=== PATIENT | male | born 1975 | race African-American/Black ===

== ENCOUNTER 2016-12-23 15:11 | Inpatient (IN) | payer MEDICARE, OTHER ==
[~2016-12-23] VITALS: Ht 162.6 cm; Wt 67.6 kg
[~2016-12-23 15:11] MED LIST: DIPH-530 IVP; DIPH1TAB PO; EFAV600T PO
--- NOTE | 2016-12-23 15:24 | NUR ---
PT BB BROTHER FROM HOME FOR WORSENING SOB AND BODY PAIN SINCE YESTERDAY. PT ON O2 @2LPM AT HOME. PLACED ON MONITOR. VSS. AWAITING MD ORDER. PT LAST DIALYZE SUNDAY.
[2016-12-23] MEDS ORDERED: HYDROMORPHONE 1 MG/1 ML DISP.SYRIN ONE (15:50)
[2016-12-23] MEDS ORDERED: ONDANSETRON HCL/PF 4 MG/2 ML VIAL ONE (15:50)
[2016-12-23] MEDS ORDERED: HYDROMORPHONE 1 MG/1 ML DISP.SYRIN IV ONE (16:00)
[2016-12-23] MEDS ORDERED: ONDANSETRON HCL/PF 4 MG/2 ML VIAL IV ONE (16:00)
--- NOTE | 2016-12-23 16:00 | NUR ---
LAC #20 IV ACCESS BLOOD SAMPLE COLLECTED SENT TO LAB
--- NOTE | 2016-12-23 16:07 | NUR ---
KAIT AT BS.
[2016-12-23] MEDS ORDERED: IOHEXOL-300 100 ML VIAL IV ONE (16:17)
[2016-12-23] MEDS ORDERED: IV NS 0.9% 250 ML IV ONE (16:17)
[2016-12-23] MEDS ORDERED: CT SWABBABLE VALVE TRANS SET 1 EA INFUS.SET MC ONE (16:17)
[2016-12-23 16:19] LABS: BASOPHILS % (AUTO) 0.3 % (0.0-2.0); EOSINOPHILS % (AUTO) 0.3 % (0.0-6.0); HEMATOCRIT 36 % (39-51); HEMOGLOBIN 11.3 g/dL (13.5-17.5); LYMPHOCYTES # (AUTO) 0.3 /CMM (0.8-4.8); LYMPHOCYTES % (AUTO) 7.6 % (20.0-44.0); MEAN CORPUSCULAR HEMOGLOBIN 30 PG (26.0-33.0); MEAN CORPUSCULAR HGB CONC 32 g/dl (31.0-36.0); MEAN CORPUSCULAR VOLUME 94 fL (80-96); MONOCYTES # (AUTO) 0.2 /CMM (0.1-1.30); NEUTROPHILS # (AUTO) 2.9 /CMM (1.8-8.9); NEUTROPHILS % (AUTO) 85.8 % (43.0-81.0); PLATELET COUNT (AUTO) 79 /CMM (150-450); RDW COEFFICIENT OF VARIATION 15.4 (11.5-15.0); WHITE BLOOD COUNT (AUTO) 3.4 K/uL (4.3-11.0)
[2016-12-23 16:22] LABS: CARBON DIOXIDE 22 mmol/L (21-32); CHLORIDE 96 mmol/L (98-107); GFR 5 mL/min (>60); GLUCOSE 91 mg/dL (74-106); POTASSIUM 5.5 mmol/L (3.5-5.1); SODIUM SERUM 132 mmol/L (136-145); UREA NITROGEN, BLOOD 51 mg/dL (7-18)
[2016-12-23 16:30] LABS: CREATININE 13.7 mg/dL (0.6-1.3); TROPONIN I < 0.017 ng/mL (0.00-0.056)
[2016-12-23] MEDS ORDERED: diphenhydrAMINE HCL 50 MG/ML VIAL ONE (16:31)
[2016-12-23 16:34] LABS: ALANINE AMINOTRANSFERASE 17 U/L (12-78); ALBUMIN 3.7 g/dL (3.4-5.0); ALKALINE PHOSPHATASE 224 U/L (46-116); ASPARTATE AMINOTRANSFERASE 18 U/L (15-37); B-TYPE NATRIURETIC PEPTIDE 2067 PG/ML (0-125); BILIRUBIN,DIRECT 0.2 mg/dL (0.0-0.2); BILIRUBIN,TOTAL 0.4 mg/dL (0.2-1.0); TOTAL PROTEIN, SERUM 9.1 g/dL (6.4-8.2)
--- NOTE | 2016-12-23 16:40 | NUR ---
PT TAKEN TO CT SCAN VIA WC
[2016-12-23 16:42] LABS: INR 1.02 (0.87-1.13); PROTHROMBIN TIME 10.9 SECS (9.5-12.7)
[2016-12-23 16:55] LABS: MAGNESIUM 2.5 mg/dL (1.8-2.4); PHOSPHORUS 6.7 mg/dL (2.5-4.9)
--- NOTE | 2016-12-23 16:56 | NUR ---
CALLED NURSING SUP. FOR TELE BED, INFORMED HER PT HAS HIV
[2016-12-23] MEDS ORDERED: diphenhydrAMINE HCL 50 MG/ML VIAL IV ONE (17:00)
--- NOTE | 2016-12-23 17:19 | NUR ---
DR.RUTHERFORD CECILIA YARD GENERAL CAR SUPERVISOR
[2016-12-23] MEDS ORDERED: SEVE800T8 PO (17:28)
[2016-12-23] MEDS ORDERED: DIPH25CA6 PO (17:28)
[2016-12-23] MEDS ORDERED: LORA0.5T PO (17:28)
[2016-12-23] MEDS ORDERED: LORAZEPAM 1 MG TABLET ONE (17:29)
--- NOTE | 2016-12-23 17:33 | NUR ---
EPIC REPAGED FOR UPDATE ON PT
[2016-12-23] MEDS ORDERED: MAG HYDROX/AL HYDROX/SIMETH 30 ML UDC PO PRN (18:00)
[2016-12-23] MEDS ORDERED: ONDANSETRON HCL/PF 4 MG/2 ML VIAL IVP PRN (18:00)
[2016-12-23] MEDS ORDERED: SODIUM POLYSTYRENE SULFONATE 15 G/60 ML BOTTLE PO ONE (18:00)
[2016-12-23] MEDS ORDERED: Z GUARD REMEDY 2 OZ OINT TP PRN (18:00)
[2016-12-23] MEDS ORDERED: MAGNESIUM HYDROXIDE 30 ML UDC PO PRN (18:00)
[2016-12-23] MEDS ORDERED: HYDROCODONE/APAP 5/325MG 1 EACH TABLET PO PRN (18:00)
[2016-12-23] MEDS ORDERED: LORAZEPAM 1 MG TABLET PO ONE (18:00)
[2016-12-23] MEDS ORDERED: LORAZEPAM 0.5 MG TABLET PO ONE (18:00)
--- NOTE | 2016-12-23 18:03 | NUR ---
GAVE REPORT TO RENATO MARRJOB PRINTER ROOM 312-2 . TRANSPORTED VIA ACLS PROTOCOL.
[2016-12-23 18:13] LABS: ANISOCYTOSIS 1+; BAND % (MANUAL) 5 % (0.0-5.0); LYMPHOCYTES % (MANUAL) 6 % (16-48); MONOCYTES % (MANUAL) 7 % (0-11.0); NEUTROPHILS % (MANUAL) 82 (42-76); PLATELET ESTIMATE DECREASED
--- NOTE | 2016-12-23 18:20 | NUR ---
RECEIVED PATIENT ON THE FLOOR AT 1820. PATIENT RESTING IN BED, AROUSABLE, ALERT AND ORIENTED X4. GAVE WARM BLANKET, MET NEEDS AND MADE SURE PATIENT IS SAFE. 2 1/2 BILATERAL SIDERAILS UP, ORIENTED TO CALL LIGHT AND TELEVISION. WILL ENDORSE TO NEXT SHIFT TO COMPLETE ADMISSION.
--- NOTE | 2016-12-23 18:48 | NUR ---
MD SCHULER AWARE ABOUT PATIENT'S BUN AND CREATININE LEVELS. PATIENT ON LIST FOR DIALYSIS TOMORROW.
--- NOTE | 2016-12-23 18:57 | NUR ---
WAITING FOR KAYEXALATE AT FROM PHARMACY, WILL ENDORSE TO NEXT SHIFT
--- NOTE | 2016-12-23 19:30 | NUR ---
CARGO AGENT NOTES RECEIVED ON BED MOANING IN PAIN,CLAIMED HES HAVING ABDOMINAL PAIN.WITH RIGHT UPPER ARM AV FISTULA FOR HD ACCESS.LEFT AC SALINE LOCK FOR MEDS.O2 IN USED AT 2L/TO KEEP O2 SAT ABOVE 90%.BED O LOW POSITION AND LOCK,CALL LIGHT IN REACH,NEEDS ANTICIPATED.
[2016-12-23 20:00] VITALS: BP 132/73
[2016-12-23] MEDS: MORPHINE SULFATE INJ 2 MG/ML DISP.SYRIN IV PRN (20:11)
--- NOTE | 2016-12-23 20:11 | NUR ---
CARE TRANSITION MANAGER NOTES PAIN MANAGEMENT C/O ABDOMINAL PAIN 8/10 ON PAIN SCALE.MEDICATED WITH MORPHINE 2MG IVP ORDERED FOR SEVERE PAIN.
[2016-12-23 20:35] VITALS: BP 134/73
--- NOTE | 2016-12-23 21:32 | NUR ---
CHIEF RISK OFFICER NOTES SR 89 ON TELE MONITOR
[2016-12-23] MEDS: diphenhydrAMINE HCL 25 MG CAPSULE PO PRN (22:19)
--- NOTE | 2016-12-23 22:19 | NUR ---
CLOSING SUPERVISOR NOTES C/O GENERALIZED ITCHINESS,MEDICATED WITH BENADRYL 50MG PO ORDERED
[2016-12-24] VITALS (9 sets, daily range): BP systolic 107–130; BP diastolic 66–78
--- NOTE | 2016-12-24 01:00 | NUR ---
BATON TEACHER NOTES AWAKE,C/O PRODUCTIVE COUGH,DR WHALEY PAGE WITH NEW ORDER NOTED AND CARRIED OUT.
[2016-12-24] MEDS ORDERED: GUAIFENESIN/D-METHORPHAN HB 5 ML UDC ONE (01:12)
[2016-12-24] MEDS: GUAIFENESIN/D-METHORPHAN HB 5 ML UDC PO PRN ×5 (01:18→21:00)
[2016-12-24] MEDS: MORPHINE SULFATE INJ 2 MG/ML DISP.SYRIN IV PRN ×5 (01:22→20:30)
--- NOTE | 2016-12-24 01:22 | NUR ---
KNOCKER OFF NOTES GIVEN KHARIITUSSIN DN 10ML PO FOR COUGH WITH ORDER
--- NOTE | 2016-12-24 01:22 | NUR ---
INSEMINATOR NOTES PAIN MANAGEMENT C/O BACK PAIN 9/10 ON PAIN SCALE,MEDICATED WITH MORPHINE 2MG IVP ORDERED.WILL MONITOR FOR RELIEF
[2016-12-24] MEDS ORDERED: GUAIFENESIN/CODEINE 10 ML UDC PO PRN (01:30)
[2016-12-24] MEDS: ZOLPIDEM TARTRATE 5 MG TABLET PO PRN (02:04)
--- NOTE | 2016-12-24 02:04 | NUR ---
WATER SERVICE SUPERVISOR NOTES C/O INSOMNIA,AMBIEN 5MG PO GIVEN PER PATIENT REQUEST
[2016-12-24] MEDS: ACETAMINOPHEN 325 MG TABLET PO PRN (03:30)
--- NOTE | 2016-12-24 03:30 | NUR ---
SUPERVISOR BACKFILLING NOTES C/O HEADACHE,TYLENOL 650 PO ADMINISTERED ORDERED.
[2016-12-24] MEDS: LORAZEPAM 0.5 MG TABLET PO PRN ×3 (04:04→22:11)
--- NOTE | 2016-12-24 04:04 | NUR ---
STREETCAR OPERATOR NOTES FEELING ANXIOUS,ATIVAN 0.5 PO GIVEN PER PATIENT REQUEST.
--- NOTE | 2016-12-24 06:27 | NUR ---
DERMATOLOGY SALES REPRESENTATIVE NOTES SLEPT WITH INTERVALS,MEDICATIONS GIVEN EFFECTIVE.FOR HD TODAY.NO SOB NOTED,AFEBRILE.CALL LIGHT IN REACH,NEEDS ATTENDED.WILL ENDORSE TO DAY NURSE FOR GUSTAVO.
[2016-12-24 06:47] LABS: BASOPHILS % (AUTO) 0.3 % (0.0-2.0); HEMATOCRIT 32 % (39-51); HEMOGLOBIN 10.3 g/dL (13.5-17.5); LYMPHOCYTES # (AUTO) 0.5 /CMM (0.8-4.8); LYMPHOCYTES % (AUTO) 10.3 % (20.0-44.0); MEAN CORPUSCULAR HEMOGLOBIN 30 PG (26.0-33.0); MEAN CORPUSCULAR HGB CONC 32 g/dl (31.0-36.0); MEAN CORPUSCULAR VOLUME 94 fL (80-96); MONOCYTES # (AUTO) 0.4 /CMM (0.1-1.30); MONOCYTES % (AUTO) 8.1 % (2.0-12.0); NEUTROPHILS # (AUTO) 3.6 /CMM (1.8-8.9); NEUTROPHILS % (AUTO) 81.3 % (43.0-81.0); PLATELET COUNT (AUTO) 87 /CMM (150-450); RDW COEFFICIENT OF VARIATION 15.9 (11.5-15.0); RED BLOOD CELL COUNT(AUTO) 3.39 MIL/uL (4.5-6.0); WHITE BLOOD COUNT (AUTO) 4.4 K/uL (4.3-11.0)
[2016-12-24 07:35] LABS: CALCIUM, SERUM 6.6 mg/dL (8.5-10.1); MAGNESIUM 2.4 mg/dL (1.8-2.4); POTASSIUM 5.7 mmol/L (3.5-5.1)
--- NOTE | 2016-12-24 07:37 | NUR ---
RN OPENING NOTES TELE RECEIVED REPORT FROM CAKE PULLER NURSE. PATIENT IS IN BED. BED IN LOW POSITION, LOCKED AND 2 SIDE RAILS ARE UP. NO SIGNS OR SYMPTOMS OF DISTRESS. IV SITE IS INTACT AND POTENT. WILL CONTINUE TO MONITOR AND ASSESS PATIENT THROUGHOUT MY SHIFT.
--- NOTE | 2016-12-24 07:38 | NUR ---
RN NOTES / CRITICAL LAB LAB CALLED WITH CRITICAL VALUE. POTASSIUM IS 5.7 AND Cr IS 14.8 DIALYSIS IS SCHEDULE FOR TODAY AT 0900. WILL FOLLOW UP WITH .
[2016-12-24 07:40] LABS: CREATININE 14.8 mg/dL (0.6-1.3)
[2016-12-24] MEDS: SEVELAMER CARBONATE 800 MG TABLET PO SCH ×3 (08:00→16:42)
[2016-12-24] MEDS: PANTOPRAZOLE 40 MG TABLET.DR PO SCH (08:15)
--- NOTE | 2016-12-24 08:27 | NUR ---
RN NOTES 0900 MEDS PATIENT DIDN'T EAT BREAKFAST AND PATIENT WILL HAVE DIALYSIS TODAY AT 0900. RENAGEL AND SUSTIVA HELD RESPECTIVELY
--- NOTE | 2016-12-24 09:00 | NUR ---
TEJINDER NOTES DIALYSIS PATIENT STARTED DIALYSIS. Addendum: 12/24/16 at 1242 by EMILIO BARBOSA RN PATIENT DONE WITH DIALYSIS. VITAL SIGNS 132/77, HR 70 TEMP 99.1 3500CC REMOVED DURING DIALYSIS
--- NOTE | 2016-12-24 09:00 | NUR ---
RN NOTES RENAGEL RENAGEL 0900 DOSE NOT ADMINISTERED. PATIENT REFUSED MEDS BECAUSE HE DIDN'T WANT TO EAT BREAKFAST. PATIENT IS DOING DIALYSIS AND WILL BE FINISH AROUND 1200. WILL ADMINISTER 1300 DOSE DURING LUNCH TIME.
[2016-12-24] MEDS ORDERED: EPOETIN ALFA (10,000 UNIT) 10,000 UNIT/ML VIAL SQ ONE (10:00)
[2016-12-24] MEDS: diphenhydrAMINE HCL 50 MG/ML VIAL IV PRN ×3 (10:01→23:43)
[2016-12-24 10:09] LABS: BAND % (MANUAL) 8 % (0.0-5.0); LYMPHOCYTES % (MANUAL) 11 % (16-48); MONOCYTES % (MANUAL) 8 % (0-11.0); NEUTROPHILS % (MANUAL) 73 (42-76); PLATELET ESTIMATE DECREASED
[2016-12-24] MEDS: EFAVIRENZ 600 MG TABLET PO SCH (12:32)
--- NOTE | 2016-12-24 18:30 | NUR ---
RN CLOSING NOTES PATIENT IS IN BED, ALERT AND ORIENTED TO NAME, PLACE AND TIME. BED IN LOW POSITION, LOCKED AND TWO SIDE RAILS ARE UP. NO SIGNS OR SYMPTOMS OF DISTRESS. SINUS RHYTHM ON THE MONITOR. PATIENT'S PAIN WAS RELIEVED BY MORPHINE 2MG Q4H, PLEASE REFER TO eMAR FOR MORPHINE ADMINISTRATING TIME. PATIENT DIDN'T HAVE GOOD APPETITE ALL DAY, 0% BREAKFAST, 5% LUNCH AND 25% DINNER. PATIENT SAID: "I DON'T LIKE HOSPITAL FOOD". I ADVISED THE PATIENT TO SPEAK WITH HIS FAMILY / FRIENDS TO BRING HIM FOOD. I ALSO GAVE HIM PUDDING AND APPLE SAUCE. DR SCHULER WAS AWARE OF PATIENT LABS ABNORMALITY AND PATIENT HAD DIALYSIS TODAY. PATIENT FELT A RELIEVE AND SAID: "IT IS MUCH EASIER TO BREATH NOW". WILL ENDORSE TO PHP MAGENTO DEVELOPER NURSE.
--- NOTE | 2016-12-24 19:40 | NUR ---
BAR AND FILLER ASSEMBLER INITIAL NOTES: RECEIVED REPORT FROM EMILIO MARR. PT ON BED, AWAKE, A/O X3 ON 2L VIA NC, RESPIRATION EVEN AND UNLABORED. C/O 5/10 PAIN ON THE ABDOMEN AND GENERALIZED, STATED ITS TOLERABLE AND WILL WAIT FOR HIS MORPHINE TO BE DUE. S/P HD TODAY WITH 3500ML OUT, AWARE OF THE ABNORMAL LABS. PT HAS ANNABELLA AV FISTULA, PT IS ANURIC. PT HAS LAC G 20 PATENT AND FLUSHING WELL, ON HL. PT ON ACCELERATED JUNCTIONAL HR 90, PT DENIES ANY CHEST PAIN OR LIGHT HEADEDNESS, BUT IS C/O GENERALIZED PAIN. SAFETY PRECAUTION FOR FALL INITIATED, CALL LIGHT IN REACH, WILL CONTINUE TO MONITOR
--- NOTE | 2016-12-24 20:31 | NUR ---
BOTTLE CAPPER NOTES: PT C/O GENERALIZED PAIN 04/26 REQUESTING FOR MORPHINE, PRN MORPHINE 2MG IVP ADMINISTERED TO THE PT AT THIS TIME, EDUCATE PT REGARDING MEDICATION SIDE EFFECT, WILL CONTINUE TO MONITOR AND REASSESS.
--- NOTE | 2016-12-24 21:00 | NUR ---
METAL TESTER NOTES: PT REQUESTED FOR HIS COUGH MEDICINE, PRN ROBITUSSIN DM 10ML ADMINISTERED TO THE PT AT THIS TIME. WILL CONTINUE TO MONITOR AND REASSESS
--- NOTE | 2016-12-24 22:11 | NUR ---
COCKTAIL SERVER NOTES: PT REQUESTING FOR HER ANXIETY MEDICATION SPECIFICALLY ATIVAN, PRN ATIVAN 0.5 MG TAB PO ADMINISTERED TO THE PT AT THIS TIME, VS TAKEN AND RECORDED PRIOR TO GIVING THE MEDICATION, WILL CONTINUE TO MONITOR AND REASSESS
--- NOTE | 2016-12-24 23:44 | NUR ---
telephone switchboard operator notes: pt requested to get his benadryl, stated she use it for sleeping and help relieve itching, prn benadryl 50mg ivp administered to the pt at this time. will continue to monitor and reassess
[2016-12-25] VITALS: BP 121/79
[2016-12-25] MEDS: MORPHINE SULFATE INJ 2 MG/ML DISP.SYRIN IV PRN ×5 (00:34→21:33)
--- NOTE | 2016-12-25 00:35 | NUR ---
telecom assistant notes: pt c/o generalized pain 04/26 requesting for morphine, prn morphine 2mg ivp administered to the pt at this time, will continue to monitor and reassess
[2016-12-25 04:00] VITALS: BP 109/72
--- NOTE | 2016-12-25 04:01 | NUR ---
director telecommunications notes: seen pt sleeping, appears comfortable, not in any distress
[2016-12-25] MEDS: GUAIFENESIN/D-METHORPHAN HB 5 ML UDC PO PRN ×2 (04:49→10:43)
--- NOTE | 2016-12-25 04:50 | NUR ---
telephone operator chief notes: pt c/o upper and lower back pain 04/26 requesting for his morphine. prn morphine 2mg ivp administered to the pt at this time, also he requested for his cough medication, prn robitussin 10ml syrup administered to the pt. will continue to monitor and reassess
[2016-12-25] MEDS: diphenhydrAMINE HCL 50 MG/ML VIAL IV PRN ×3 (05:43→21:26)
--- NOTE | 2016-12-25 05:43 | NUR ---
supervisor telephone information notes: pt requested for his benadryl for itching and sleep, prn benadryl 50mg ivp administered to the pt at this time. will continue to monitor and reasses
--- NOTE | 2016-12-25 06:44 | NUR ---
telephone surveyor closing notes: pt on bed, awake, remains on 2l via nc, no sob noted, last pain meds given at 0430am. left ac iv access remains patent and flushing well, on hl. no bp/iv blood draw on loreto. ble kept offloaded. remains on accelerated junctional hr 79, denies any chest pain at this time. vs remains stable, needs attended. safety precautions for fall remains engaged. call light in reach. will endorse to day rn for jorge.
[2016-12-25 06:49] LABS: BASOPHILS % (AUTO) 0.1 % (0.0-2.0); EOSINOPHILS % (AUTO) 0.4 % (0.0-6.0); HEMATOCRIT 34 % (39-51); HEMOGLOBIN 11.2 g/dL (13.5-17.5); LYMPHOCYTES # (AUTO) 0.6 /CMM (0.8-4.8); LYMPHOCYTES % (AUTO) 13.8 % (20.0-44.0); MEAN CORPUSCULAR HEMOGLOBIN 30 PG (26.0-33.0); MEAN CORPUSCULAR HGB CONC 33 g/dl (31.0-36.0); MEAN CORPUSCULAR VOLUME 93 fL (80-96); MONOCYTES # (AUTO) 0.4 /CMM (0.1-1.30); MONOCYTES % (AUTO) 10.5 % (2.0-12.0); NEUTROPHILS % (AUTO) 75.2 % (43.0-81.0); PLATELET COUNT (AUTO) 89 /CMM (150-450); RDW COEFFICIENT OF VARIATION 16.1 (11.5-15.0); RED BLOOD CELL COUNT(AUTO) 3.67 MIL/uL (4.5-6.0)
[2016-12-25 07:09] LABS: CALCIUM, SERUM 6.9 mg/dL (8.5-10.1); MAGNESIUM 2.2 mg/dL (1.8-2.4); PHOSPHORUS 6.9 mg/dL (2.5-4.9); POTASSIUM 4.6 mmol/L (3.5-5.1)
--- NOTE | 2016-12-25 07:15 | NUR ---
LAUNDRY AID NOTES Patient in bed, alert and oriented, no distress noted, denies pain or discomfort at this time, breathing even and unlabored, no sob, safety measures in placed, needs anticipated and met, call light within reach, will continue to monitor.
[2016-12-25 07:31] LABS: CREATININE 11.3 mg/dL (0.6-1.3)
[2016-12-25 08:00] VITALS: BP 108/71
[2016-12-25] MEDS: SEVELAMER CARBONATE 800 MG TABLET PO SCH ×3 (08:00→18:00)
--- NOTE | 2016-12-25 08:50 | NUR ---
SUPERINTENDENT CONCRETE MIXING PLANT NOTES PATIENT WITH CREATININE LEVEL OF 11.3, IMPROVED FROM YESTERDAYS RESULT, MD AWARE.
[2016-12-25] MEDS: PANTOPRAZOLE 40 MG TABLET.DR PO SCH (08:55)
[2016-12-25] MEDS: EFAVIRENZ 600 MG TABLET PO SCH ×2 (09:00→11:06)
--- NOTE | 2016-12-25 09:00 | NUR ---
RN MS NOTES PATIENT REFUSED RENVELA BECAUSE PATIENT DID NOT EAT BREAKFAST, OFFERED ALTERNATIVE BUT PATIENT STILL REFUSED. PATIENT ALSO REFUSED SUSTIVA AT THIS TIME. RE-EDUCATED, OFFERED X3 STILL REFUSED, WILL CONTINUE TO MONITOR.
--- NOTE | 2016-12-25 11:00 | NUR ---
RN MS NOTES Patient seen by Dr. Cano, patient is scheduled to have hemodialysis tomorrow.
--- NOTE | 2016-12-25 11:30 | NUR ---
RN MS NOTES RETURNED RENVELA MEDICATIONS 3 TABLET TO RETURNED MEDICATION BIN, 1 TABLET OPENED AND WASTED WITNESSED BY ANOTHER RN, SHONA.
[2016-12-25] MEDS: LORAZEPAM 0.5 MG TABLET PO PRN (13:09)
--- NOTE | 2016-12-25 13:16 | NUR ---
RN MS NOTES Informed Dr. Jones patient is requesting for Dilaudid instead of Morphine for pain management, per patient Morphine is ineffective and he remembers receiving Dilaudid and it worked well for him. Dr. Jones made aware, but disagreed, no new order at this time. Patient in bed, sleeping intermittently, easily arousable and made aware Dr. Jones did not change the medication, patient verbalized understanding, no s/sx of pain or discomfort noted at this time, call light within reach, will continue to monitor.
[2016-12-25 16:00] VITALS: BP 118/71
--- NOTE | 2016-12-25 18:05 | NUR ---
RN MS NOTES Patient refused to eat dinner, refused Renvela medication at this time. Offered x3, explained risks and benefits still refused.
--- NOTE | 2016-12-25 18:51 | NUR ---
RN MS NOTES patient in bed sleeping intermittently, easily arousable, morphine effective, no significant changes this shift, needs attended and met, safety measures in placed, call light within reach, will endorse to overnight houseperson for jorge.
[2016-12-25] MEDS: ACETAMINOPHEN 325 MG TABLET PO PRN (19:54)
[2016-12-25 20:00] VITALS: BP 117/69
--- NOTE | 2016-12-25 20:00 | NUR ---
MS/RN OPENING NOTES RECEIVED PATIENT IN BED, AWAKE, ALERTX4. NO S/S OF SOB OR DISTRESS. ABLE TO VERBALIZE NEEDS. PREFER TO BE INACTIVE AND SIT IN BED AND REPORTED PAIN MEDICATION MONITORING AM RN ENDORSE CONTINUITY OF CARE. WILL CONTINUE TO PROVIDE PAIN MEDICATION AND PROVIDE CARE.
[2016-12-26] MEDS: ACETAMINOPHEN 325 MG TABLET PO PRN (00:54)
--- NOTE | 2016-12-26 01:34 | NUR ---
MS/RN NOTES PATIENT REPORTED SWOLLEN NECK AND PAIN . GAVE TYLENOL 650 MG PO AND TO RELIEVE CONSTIPATION REQUESTED AND TOLERATE MOM. WILL F/U WITH AM RN FOR GUSTAVO/
[2016-12-26] MEDS: diphenhydrAMINE HCL 50 MG/ML VIAL IV PRN ×3 (03:11→17:49)
--- NOTE | 2016-12-26 05:33 | NUR ---
MS/RN NOTES PATIENT IN BED. NO S/S OF SOB OR DISTRESS. PAIN MEDICATION MONITORING. WILL CONTINUE TO MONITOR.CALL LIGHTS WITHIN REACH.ATTEND TO NEEDS AT ALL TIMES.
[2016-12-26] MEDS: MORPHINE SULFATE INJ 2 MG/ML DISP.SYRIN IV PRN ×3 (06:18→23:52)
--- NOTE | 2016-12-26 06:38 | NUR ---
MS/RN CLOSING NOTES PATIENT IN BED. AWAKE , ALERT AND ABLE TO VERBALIZE NEEDS. PROVIDED PAIN MEDICATION AND RELIEF OF BOWEL WITH MOM.WILL ENDORSE TO AM RN FOR GUSTAVO.
[2016-12-26] MEDS: LORAZEPAM 0.5 MG TABLET PO PRN ×2 (06:54→21:46)
--- NOTE | 2016-12-26 06:55 | NUR ---
MS/RN NOTES PATIENT REQUESTED MEDICATION TO CALM HIM DOWN GAVE PRN ATIVAN PO 0.5 MG WILL MONITOR EFFECTIVENESS.
--- NOTE | 2016-12-26 07:20 | NUR ---
RN MS NOTES Patient in bed, asleep but easily arousable, denies pain or discomfort at this time, encouraged patient to sit on a chair today, to relieve pressure off his back, needs attended and met, safety measures in placed, call light within reach, will continue to monitor.
[2016-12-26 08:00] VITALS: BP_SYST 111; BP_SYST 115; BP_DIAS 61; BP_DIAS 71
[2016-12-26] MEDS: SEVELAMER CARBONATE 800 MG TABLET PO SCH ×3 (08:00→18:00)
[2016-12-26] MEDS: PANTOPRAZOLE 40 MG TABLET.DR PO SCH (09:02)
--- NOTE | 2016-12-26 09:45 | NUR ---
RN MS NOTES HEMODIALYSIS STARTED, PATIENT PREFERS SUSTIVA MEDICATION AFTER HEMODIALYSIS.
--- NOTE | 2016-12-26 10:25 | NUR ---
RN MS NOTES Patient seen by Dr. Prieto and gave new order for Dilaudid 1mg IV x1, patient prefers to have the dilaudid right after dialysis. Order noted and carried out.
--- NOTE | 2016-12-26 11:30 | NUR ---
RN MS NOTES PATIENT SEEN BY DR. VELASQUEZ AND RECEIVED NEW ORDER. ORDER NOTED AND CARRIED OUT. PATIENT IS TESTED FOR INFLUENZA A&B, SWAB DONE, PATIENT PLACED ON DROPLET PRECAUTION. WILL CONTINUE TO MONITOR.
[2016-12-26] MEDS ORDERED: HYDROMORPHONE 1 MG/1 ML DISP.SYRIN IV ONE (13:00)
--- NOTE | 2016-12-26 13:00 | NUR ---
RN MS NOTES PATIENT COMPLETED HD WITH OUTPUT OF 2.5 LITERS.
[2016-12-26] MEDS ORDERED: TENOFOVIR DISOPROXIL FUMARATE 300 MG TABLET PO SCH (13:07)
[2016-12-26] MEDS: EFAVIRENZ 600 MG TABLET PO SCH (13:30)
[2016-12-26] MEDS: LAMIVUDINE 50 MG/5 ML PO SCH (13:31)
--- NOTE | 2016-12-26 14:15 | NUR ---
RN MS NOTES PATIENT VERBALIZED OF FEELING DEPRESSED, NO VERBALIZATION OF SUICIDAL IDEATION, ONLY NEGATIVE THOUGHTS PER PATIENT, DR. HARPER MADE AWARE AND WAITING FOR ORDERS.
--- NOTE | 2016-12-26 14:31 | NUR ---
RN MS NOTES RECEIVED NEW ORDER FROM DR. HARPER FOR A PSYCH EVALUATION WITH DR. EDDY.
[2016-12-26 16:00] VITALS: BP 102/66
--- NOTE | 2016-12-26 18:20 | NUR ---
RN MS NOTES Patient verbalized he doesnt have an appetite at this time, refused breakfast, lunch and dinner, requested nutritional supplement, charge nurse and Dr. Prieto made aware and agreed, [facility] renal and dietary consult. Order noted and carried out. will continue to monitor.
[2016-12-26] MEDS: RENAL NOVASOURCE (8OZ) 1 EA BOX PO SCH (18:30)
--- NOTE | 2016-12-26 18:55 | NUR ---
RN MS NOTES Patient in bed, no s/sx of distress at this time, no significant change this shift, denies pain or discomfort at this time, call light within reach, will endorse to car shifter for jorge.
[2016-12-26 20:36] VITALS: BP 105/65
[2016-12-27] MEDS: diphenhydrAMINE HCL 25 MG CAPSULE PO PRN (01:52)
[2016-12-27] MEDS: diphenhydrAMINE HCL 50 MG/ML VIAL IV PRN ×3 (01:58→21:17)
[2016-12-27] MEDS: MORPHINE SULFATE INJ 2 MG/ML DISP.SYRIN IV PRN (05:09)
--- NOTE | 2016-12-27 06:39 | NUR ---
continue to have abdominal pain ,bone pain, morphine q4 hrs, started new iv site, not sleeping well overnight. will continue to monitor.
[2016-12-27 06:52] LABS: BASOPHILS % (AUTO) 0.2 % (0.0-2.0); HEMATOCRIT 35 % (39-51); HEMOGLOBIN 11.8 g/dL (13.5-17.5); LYMPHOCYTES # (AUTO) 0.4 /CMM (0.8-4.8); LYMPHOCYTES % (AUTO) 9.8 % (20.0-44.0); MEAN CORPUSCULAR HEMOGLOBIN 31 PG (26.0-33.0); MEAN CORPUSCULAR HGB CONC 33 g/dl (31.0-36.0); MEAN CORPUSCULAR VOLUME 93 fL (80-96); MONOCYTES # (AUTO) 0.3 /CMM (0.1-1.30); MONOCYTES % (AUTO) 8.2 % (2.0-12.0); NEUTROPHILS # (AUTO) 3.3 /CMM (1.8-8.9); NEUTROPHILS % (AUTO) 80.8 % (43.0-81.0); PLATELET COUNT (AUTO) 128 /CMM (150-450); RDW COEFFICIENT OF VARIATION 15.8 (11.5-15.0); RED BLOOD CELL COUNT(AUTO) 3.82 MIL/uL (4.5-6.0); WHITE BLOOD COUNT (AUTO) 4.1 K/uL (4.3-11.0)
[2016-12-27 07:24] LABS: CALCIUM, SERUM 7.1 mg/dL (8.5-10.1); MAGNESIUM 2.5 mg/dL (1.8-2.4); PHOSPHORUS 5.6 mg/dL (2.5-4.9); POTASSIUM 4.7 mmol/L (3.5-5.1)
[2016-12-27 07:25] LABS: CREATININE 10.2 mg/dL (0.6-1.3)
--- NOTE | 2016-12-27 07:55 | NUR ---
MS RN RECEIVED ON BED,AWAKE,ALERT,ORIENTED X4,NOT IN ANY FORM OF DISTRESS,RESPIRATIONS EVEN AND UNLABORED,NO SOB NOTED, LUNGS ARE CLEAR,ABDOMEN SOFT,POSITIVE BOWEL SOUNDS,WILL MONITOR PATIENT'S CONDITION.
[2016-12-27 08:00] VITALS: BP 109/73
[2016-12-27] MEDS: RENAL NOVASOURCE (8OZ) 1 EA BOX PO SCH ×2 (08:00→08:38)
[2016-12-27] MEDS: PANTOPRAZOLE 40 MG TABLET.DR PO SCH (08:28)
[2016-12-27] MEDS: SEVELAMER CARBONATE 800 MG TABLET PO SCH ×3 (08:28→18:23)
[2016-12-27] MEDS: LORAZEPAM 0.5 MG TABLET PO PRN ×3 (08:31→19:44)
[2016-12-27] MEDS: EFAVIRENZ 600 MG TABLET PO SCH (08:31)
[2016-12-27] MEDS: LAMIVUDINE 50 MG/5 ML PO SCH (08:33)
--- NOTE | 2016-12-27 08:40 | NUR ---
MS MARR BREAKFAST SERVED,DUE MEDS GIVEN,TOLERATED WELL.
--- NOTE | 2016-12-27 11:00 | NUR ---
MS RN WAS SEEN BY DR. FRANCE Le/ ORDERS MADE AND CARRIED OUT.
[2016-12-27] MEDS: HYDROMORPHONE 1 MG/1 ML DISP.SYRIN IV PRN ×2 (12:37→18:24)
[2016-12-27] MEDS: CALCIUM ACETATE 667 MG TABLET PO SCH ×2 (13:53→18:24)
[2016-12-27 16:00] VITALS: BP 105/60
--- NOTE | 2016-12-27 17:32 | NUR ---
MS RN ON BED, NO DISTRESS NOTED,ALL NEEDS ATTENDED.
[2016-12-27] MEDS: GUAIFENESIN/D-METHORPHAN HB 5 ML UDC PO PRN (19:44)
[2016-12-27 20:00] VITALS: BP 110/78
[2016-12-28] MEDS: HYDROMORPHONE 1 MG/1 ML DISP.SYRIN IV PRN ×4 (00:06→17:35)
[2016-12-28] MEDS: ZOLPIDEM TARTRATE 5 MG TABLET PO PRN (00:06)
[2016-12-28] MEDS: diphenhydrAMINE HCL 50 MG/ML VIAL IV PRN ×2 (03:12→11:42)
[2016-12-28 06:08] LABS: *BASOS 0 % (.); *EOS 1 % (.); *EOS, ABSOLUTE 0.1 x10E3/uL (0.0-0.4); *HCT 34.9 % (37.5-51.0); *HGB 11.6 g/dL (12.6-17.7); *IMMATURE GRANULOCYTES 1 % (.); *LYMPHOCYTES 9 % (.); *LYMPHS, ABSOLUTE 0.4 x10E3/uL (0.7-3.1); *MCH 30.4 pg (26.6-33.0); *MCHC 33.2 g/dL (31.5-35.7); *MCV 91 fL (79-97); *MONOCYTES 9 % (.); *MONOS, ABSOLUTE 0.4 x10E3/uL (0.1-0.9); *NEUTROPHILS 80 % (.); *NEUTROPHILS, ABSOLUTE 3.3 x10E3/uL (1.4-7.0); *PLT 117 x10E3/uL (150-379); *RBC 3.82 x10E6/uL (4.14-5.80); *WBC 4.2 x10E3/uL (3.4-10.8)
[2016-12-28 07:04] LABS: CALCIUM, SERUM 7.3 mg/dL (8.5-10.1); MAGNESIUM 2.6 mg/dL (1.8-2.4); PHOSPHORUS 6.2 mg/dL (2.5-4.9); POTASSIUM 5.3 mmol/L (3.5-5.1)
[2016-12-28] MEDS: LORAZEPAM 0.5 MG TABLET PO PRN ×2 (07:06→17:45)
[2016-12-28] MEDS: GUAIFENESIN/D-METHORPHAN HB 5 ML UDC PO PRN (07:06)
[2016-12-28 07:08] LABS: CREATININE 12.4 mg/dL (0.6-1.3)
--- NOTE | 2016-12-28 07:40 | NUR ---
MS RN OPENING NOTE PATIENT IS ALERT AND ORIENTED x4. NO PAIN AT THIS TIME. NO SOB OR DISTRESS NOTED. ALL NURSING CARE NEEDS WILL BE ATTENDED TO. SAFETY MEASURES IMPLEMENTED. CALL LIGHT WITHIN REACH. PATIENT TO HAVE DIALYSIS TODAY. NO BLOOD PRESSURE ON RIGHT ARM. IV INTACT AND PATENT NO REDNESS OR SWELLING NOTED. WILL CONTINUE TO MONITOR.
[2016-12-28 08:00] VITALS: BP 99/70
[2016-12-28] MEDS: RENAL NOVASOURCE (8OZ) 1 EA BOX PO SCH ×2 (08:32→17:36)
[2016-12-28] MEDS: PANTOPRAZOLE 40 MG TABLET.DR PO SCH (08:32)
[2016-12-28] MEDS: EFAVIRENZ 600 MG TABLET PO SCH (08:33)
[2016-12-28] MEDS: SEVELAMER CARBONATE 800 MG TABLET PO SCH ×2 (08:33→15:23)
[2016-12-28] MEDS: CALCIUM ACETATE 667 MG TABLET PO SCH ×2 (08:33→15:23)
[2016-12-28] MEDS ORDERED: ESCITALOPRAM OXALATE (10 MG) 10 MG TABLET PO SCH (09:00)
[2016-12-28] MEDS: LAMIVUDINE 50 MG/5 ML PO SCH (09:00)
[2016-12-28 13:29] LABS: *% CD 4 POS. LYMPH 26.7 % (30.8-58.5); *% CD 8 POS. LYMPH 43.3 % (12.0-35.5); *ABSOLUTE CD 4 HELPER 107 /uL (359-1519); *ABSOLUTE CD 8 SUPPRESSOR 173 /uL (109-897); *CD4/CD8 RATIO 0.62 (0.92-3.72)
[2016-12-28 16:00] VITALS: BP 108/72
--- NOTE | 2016-12-28 18:15 | NUR ---
MS GLOBAL CLIMATE CHANGE RESEARCHER NOTE PATIENT IS ALERT AND ORIENTED x4. NO PAIN AT THIS TIME.NO SOB OR DISTRSES NOTED. ALL DUE MEDICATIONS GIVEN ORDERED. SAFETY MEASURES IMPLEMENTED. CALL LIGHT WITHIN REACH AT ALL TIMES. DISCHARGE INSTRUCTIONS GIVEN TO PATIENT AND BROTHER. ABLE TO RETURN DISCHARGE INSTRUCTIONS. ALL BELONGINGS WITH PATIENT. LEAVING VIA PRIVATE CAR.
[2017-01-01 21:13] LABS: *HIV-1 RNA BY PCR <20 copies/mL (.)
== END 2016-12-28 18:15 | disposition home health service (06) | DRG 682 ==
LOC: ER 15:13 → TELE 17:47 → MED 12-25 08:59
PROVIDERS: ADMIT Internal Medicine; ATTEND Internal Medicine
PROC: 5A1D60Z (ICD-10-PCS; principal; 2016-12-24)
DX: I12.0 Hypertensive chronic kidney disease with stage 5 chronic kidney disease or end stage renal disease (principal); N18.6 End stage renal disease; Z94.0 Kidney transplant status; I87.1 Compression of vein; E87.5 Hyperkalemia; Z99.2 Dependence on renal dialysis; E83.9 Disorder of mineral metabolism, unspecified; D64.9 Anemia, unspecified; E83.39 Other disorders of phosphorus metabolism; E83.51 Hypocalcemia; F12.90 Cannabis use, unspecified, uncomplicated; F17.210 Nicotine dependence, cigarettes, uncomplicated; F32.9 Major depressive disorder, single episode, unspecified; F41.9 Anxiety disorder, unspecified; I25.10 Atherosclerotic heart disease of native coronary artery without angina pectoris; E87.70 Fluid overload, unspecified
CPT/HCPCS: 36415; 70491-TC; 71010-TC; 71020-TC; 80048-TC; 80076-TC; 83735-TC; 83880; 84100-TC; 84484-TC; 85025-TC; 85730-TC; 86360; 87040-TC; 87070-TC; 87081-TC; 87400; 87536; 90935-TC; 94799-TC; 97001-TC; A4606; A6403; J0885; J1170; J1200; J2270; J2405; J7050; Q0163; Q9967; Z7610

== ENCOUNTER 2017-06-30 11:22 | Emergency (ER) | payer MEDICARE, OTHER ==
[~2017-06-30] VITALS: Ht 180.3 cm; Wt 74.8 kg
[~2017-06-30 11:22] MED LIST changes: -DIPH-530 IVP; -DIPH1TAB PO; +DIPH25CA6 PO; +LORA0.5T PO; +SEVE800T8 PO
--- NOTE | 2017-06-30 12:50 | NUR ---
SELF PRESENTS TO ER C/O DIFFUSE ABD PAIN SINCE THIS AM. DENIES N/V/D. PATIENT A/OX 4. BREATHING EVEN AND UNLABORED. NO SOB. VITALS STABLE. SAFETY AND COMFORT MEASURSES IN PLACE. AWAITING MD ORDERS.
[2017-06-30] MEDS ORDERED: HYDROMORPHONE INJ 2 MG/ML DISP.SYRIN IV ONE (13:00)
[2017-06-30] MEDS ORDERED: ONDANSETRON HCL/PF 4 MG/2 ML VIAL IVP ONE (13:00)
[2017-06-30] MEDS ORDERED: IV NS 0.9% 500 ML BAG IV ONE (13:00)
[2017-06-30 13:19] LABS: BASOPHILS # (AUTO) 0.1 /CMM (0.0-0.2); BASOPHILS % (AUTO) 1.5 % (0.0-2.0); EOSINOPHILS % (AUTO) 0.6 % (0.0-6.0); HEMATOCRIT 33 % (39-51); HEMOGLOBIN 10.8 g/dL (13.5-17.5); LYMPHOCYTES # (AUTO) 0.4 /CMM (0.8-4.8); LYMPHOCYTES % (AUTO) 11.5 % (20.0-44.0); MEAN CORPUSCULAR HEMOGLOBIN 31 PG (26.0-33.0); MEAN CORPUSCULAR HGB CONC 33 g/dl (31.0-36.0); MEAN CORPUSCULAR VOLUME 94 fL (80-96); MONOCYTES # (AUTO) 0.2 /CMM (0.1-1.30); MONOCYTES % (AUTO) 5.2 % (2.0-12.0); NEUTROPHILS # (AUTO) 3.2 /CMM (1.8-8.9); NEUTROPHILS % (AUTO) 81.2 % (43.0-81.0); RDW COEFFICIENT OF VARIATION 14.1 (11.5-15.0); WHITE BLOOD COUNT (AUTO) 3.9 K/uL (4.3-11.0)
--- NOTE | 2017-06-30 13:20 | NUR ---
NEW IV STARTED LAC, 20 G.
[2017-06-30 13:27] LABS: CALCIUM, SERUM 7.5 mg/dL (8.5-10.1); POTASSIUM 5.2 mmol/L (3.5-5.1)
[2017-06-30 13:30] LABS: CREATININE 9.8 mg/dL (0.6-1.3)
[2017-06-30 13:31] LABS: INR 0.95 (0.87-1.13); PROTHROMBIN TIME 9.9 SECS (9.5-12.7)
[2017-06-30 13:34] LABS: ALBUMIN 3.7 g/dL (3.4-5.0); BILIRUBIN,DIRECT 0.1 mg/dL (0.0-0.2); BILIRUBIN,TOTAL 0.4 mg/dL (0.2-1.0); TOTAL PROTEIN, SERUM 8.5 g/dL (6.4-8.2)
[2017-06-30] MEDS ORDERED: ONDANSETRON HCL/PF 4 MG/2 ML VIAL ONE (13:34)
[2017-06-30] MEDS ORDERED: HYDROMORPHONE 1 MG/1 ML DISP.SYRIN ONE (13:35)
--- NOTE | 2017-06-30 13:50 | NUR ---
PATIENT TAKEN TO XRAY VIA WHEELCHAIR.
--- NOTE | 2017-06-30 14:05 | NUR ---
PATIENT RETURNED FROM CT SCAN . Addendum: 06/30/17 at 1406 by CHLOE CORRECTION: RETURNED FROM XRAY
[2017-06-30 14:45] LABS: NEUTROPHILS % (MANUAL) 80 (42-76); PLATELET COUNT (AUTO) 75 /CMM (150-450)
[2017-06-30 14:46] LABS: LYMPHOCYTES % (MANUAL) 16 % (16-48); MONOCYTES % (MANUAL) 4 % (0-11.0)
[2017-06-30] MEDS ORDERED: diphenhydrAMINE HCL 50 MG/ML VIAL IV ONE (15:30)
[2017-06-30] MEDS ORDERED: diphenhydrAMINE HCL 50 MG/ML VIAL ONE (15:30)
[2017-06-30 15:57] VITALS: BP 148/86
--- NOTE | 2017-06-30 15:57 | NUR ---
IV removed. Catheter intact and site benign. Pressure and 4x4 applied to site. No bleeding noted. Patient discharged to home in stable condition. Written and verbal after care instructions given. Patient verbalizes understanding of instruction.
== END 2017-06-30 15:57 | disposition home or self-care (01) ==
LOC: ER 11:27
DX: K85.90 Acute pancreatitis without necrosis or infection, unspecified (principal); G89.29 Other chronic pain; I10 Essential (primary) hypertension; I48.92 Unspecified atrial flutter; F32.9 Major depressive disorder, single episode, unspecified; F17.200 Nicotine dependence, unspecified, uncomplicated; Z94.0 Kidney transplant status; Z91.012 Allergy to eggs; Z99.2 Dependence on renal dialysis
CPT/HCPCS: 36415; 74020; 80048; 80076; 83690; 85025; 85730; 96374; 96375; 99285; A4606; J1170; J1200; J2405; J7040; Z7610

== ENCOUNTER 2017-07-03 07:38 | Inpatient (IN) | payer MEDICARE, OTHER ==
[~2017-07-03] VITALS: Ht 180.3 cm; Wt 72.6 kg
--- NOTE | 2017-07-03 07:38 | NUR ---
DIFFUSE ABDOMINAL PAIN X LAST NIGHT, -N/V/D GOWNED PT NICKY SNYDER ORDER
[2017-07-03] MEDS ORDERED: MORPHINE SULFATE INJ 2 MG/ML DISP.SYRIN IV ONE (08:00)
[2017-07-03] MEDS ORDERED: ONDANSETRON HCL/PF 4 MG/2 ML VIAL IVP ONE (08:00)
[2017-07-03] MEDS ORDERED: MORPHINE SULFATE INJ 2 MG/ML DISP.SYRIN ONE (08:11)
[2017-07-03] MEDS ORDERED: ONDANSETRON HCL/PF 4 MG/2 ML VIAL ONE (08:11)
--- NOTE | 2017-07-03 08:14 | NUR ---
LOLA #20 IV ACCESS. BLOOD SAMPLE COLLECTED SENT TO LAB
[2017-07-03] MEDS ORDERED: diphenhydrAMINE HCL 50 MG/ML VIAL ONE (08:23)
[2017-07-03] MEDS ORDERED: diphenhydrAMINE HCL 50 MG/ML VIAL IV ONE (08:30)
[2017-07-03 08:34] LABS: BASOPHILS % (AUTO) 0.4 % (0.0-2.0); EOSINOPHILS % (AUTO) 1.3 % (0.0-6.0); HEMATOCRIT 32 % (39-51); HEMOGLOBIN 10.4 g/dL (13.5-17.5); LYMPHOCYTES # (AUTO) 0.6 /CMM (0.8-4.8); LYMPHOCYTES % (AUTO) 17.4 % (20.0-44.0); MEAN CORPUSCULAR HEMOGLOBIN 31 PG (26.0-33.0); MEAN CORPUSCULAR HGB CONC 33 g/dl (31.0-36.0); MEAN CORPUSCULAR VOLUME 94 fL (80-96); MONOCYTES # (AUTO) 0.3 /CMM (0.1-1.30); MONOCYTES % (AUTO) 9.1 % (2.0-12.0); NEUTROPHILS # (AUTO) 2.6 /CMM (1.8-8.9); NEUTROPHILS % (AUTO) 71.8 % (43.0-81.0); PLATELET COUNT (AUTO) 110 /CMM (150-450); RDW COEFFICIENT OF VARIATION 15.4 (11.5-15.0); RED BLOOD CELL COUNT(AUTO) 3.38 MIL/uL (4.5-6.0); WHITE BLOOD COUNT (AUTO) 3.6 K/uL (4.3-11.0)
[2017-07-03 08:41] LABS: CALCIUM, SERUM 6.6 mg/dL (8.5-10.1); POTASSIUM 5.5 mmol/L (3.5-5.1)
[2017-07-03 08:42] LABS: CREATININE 14.6 mg/dL (0.6-1.3)
[2017-07-03 08:48] LABS: ALBUMIN 3.6 g/dL (3.4-5.0); BILIRUBIN,DIRECT 0.1 mg/dL (0.0-0.2); BILIRUBIN,TOTAL 0.3 mg/dL (0.2-1.0); TOTAL PROTEIN, SERUM 8.2 g/dL (6.4-8.2)
[2017-07-03 08:52] LABS: INR 0.99 (0.87-1.13); PROTHROMBIN TIME 10.3 SECS (9.5-12.7)
[2017-07-03] MEDS ORDERED: TENO300T2 PO (09:05)
[2017-07-03] MEDS ORDERED: LAMI300T PO (09:05)
[2017-07-03] MEDS ORDERED: LORA1TAB PO (09:05)
--- NOTE | 2017-07-03 09:16 | NUR ---
PT TAKEN TO CT
--- NOTE | 2017-07-03 09:52 | NUR ---
PANEL ON-CALL PAGED
--- NOTE | 2017-07-03 10:04 | NUR ---
GAVE REPORT TO PATRIZIA MARR [id number] ADMITTING DX ESRD CHRONIC PANCREATITIS
--- NOTE | 2017-07-03 11:00 | NUR ---
INSTRUMENT PANEL ASSEMBLER NOTES RECEIVED PT FROM E.R. STAFF VIA RAFAELA, PT IS AWAKE, ALERT AND ORIENTED, RESPIRATIONS NORMAL AND NOT LABORED, TOLERATING ROOM AIR WELL, COMPLAINS OF ABDOMINAL PAIN, NO COMPLAINT OF NAUSEA OR VOMITING, ABLE TO WALK WITH SLOW AND STEADY GAIT TO BED, MADE COMFORTABLE AND WARM, ROOM SET UP ORIENTATION PROVIDED TO PT, VERBALIZED UNDERSTANDING, RECEIVED ADMITTING ORDERS FROM DR. WHALEY, WILL CONTINUE TO MONITOR PT.
[2017-07-03 11:23] VITALS: BP 135/82
[2017-07-03] MEDS ORDERED: Z GUARD REMEDY 2 OZ OINT TP PRN (11:30)
[2017-07-03] MEDS ORDERED: ONDANSETRON HCL/PF 4 MG/2 ML VIAL IVP PRN (11:30)
[2017-07-03] MEDS ORDERED: MAG HYDROX/AL HYDROX/SIMETH 30 ML UDC PO PRN (11:30)
[2017-07-03] MEDS ORDERED: HYDROCODONE/APAP 5/325MG 1 EACH TABLET PO PRN (11:30)
[2017-07-03] MEDS ORDERED: MAGNESIUM HYDROXIDE 30 ML UDC PO PRN (11:30)
[2017-07-03] MEDS ORDERED: ACETAMINOPHEN 325 MG TABLET PO PRN (11:30)
[2017-07-03] MEDS ORDERED: ZOLPIDEM TARTRATE 5 MG TABLET PO PRN (11:30)
[2017-07-03 12:00] VITALS: BP 135/82
[2017-07-03] MEDS: MORPHINE SULFATE INJ 2 MG/ML DISP.SYRIN IV PRN ×3 (12:27→20:41)
[2017-07-03] MEDS: diphenhydrAMINE HCL 25 MG CAPSULE PO PRN ×2 (12:31→17:15)
[2017-07-03] MEDS ORDERED: SEVELAMER CARBONATE 800 MG TABLET PO SCH (13:00)
[2017-07-03 16:00] VITALS: BP 133/74
[2017-07-03] MEDS: LAMIVUDINE (150MG) 150 MG TABLET PO SCH (16:20)
--- NOTE | 2017-07-03 16:37 | NUR ---
MINER PICK NOTES PT COMPLETED DIALYSIS, TOLERATED PROCEDURE WELL, VITAL SIGNS STABLE, BODY CHECK DONE, NOTED SCARS ON LEFT AND RIGHT ARM, NO BLEEDING NOTED AT AV SHUNT SITE AT RIGHT UPPER ARM, DRESSING DRY AND INTACT, PT REFUSING TO BE GOWNED AND TO HAVE A FULL BODY SKIN ASSESSMENT AT THIS TIME, STATED HE DOES NOT HAVE ANY SKIN PROBLEMS, PAIN MEDICATION GIVEN FOR PAIN MANAGEMENT.
[2017-07-03 18:00] VITALS: BP 123/71
--- NOTE | 2017-07-03 18:05 | NUR ---
KITCHEN HAND NOTES ASKED PT REGARDING HIS RENVELA DOSE, STATED HE TAKES 4 TO 5 TABS WITH EACH MEAL, BUT CANNOT REMEMBER THE DOSE, SAID HE WILL CALL HOME TO SEND HIM A PICTURE OF HIS PRESCRIPTION BOTTLE.
--- NOTE | 2017-07-03 19:45 | NUR ---
WARE CLEANER NOTES RECEIVED PATIENT SLEEPING IN BED IN SEMI LUNA POSITION. A & O X 4. NO SOB, NO ACUTE DISTRESS NOTED AT THIS TIME. HAD MILD C/O PAIN ABDOMINAL PAIN BUT REFUSED TO TAKE ANY PAIN MEDS AT THIS TIME, PER PATIENT PAIN IS TOLERABLE & WILL INFORM THE NURSE IF PAIN MEDICINE NEEDED. ON TELE MONITORING WITH SR AT 68. IV ACCESS TO LEFT HAND & RIGHT UPPER ARM AV SHUNT,INTACT & PATENT. BED IN LOW LOCKED POSITION. CALL LIGHT WITHIN REACH. CONTINUING TO OBSERVE.
[2017-07-03 20:00] VITALS: BP 134/79
[2017-07-03 20:33] VITALS: BP 134/79
--- NOTE | 2017-07-03 20:41 | NUR ---
LAP WELDER NOTES PATIENT C/O RIGHT ABDOMINAL PAIN AT SCALE 8/10. V/S WNL. PRN MORPHINE ADMINISTERED. WILL REASSESS INDICATED. OBSERVING CLOSELY FOR ANY CHANGES.
[2017-07-04] VITALS (7 sets, daily range): BP systolic 124–143; BP diastolic 64–84
--- NOTE | 2017-07-04 00:46 | NUR ---
RADIO SURVEY WORKER NOTES PATIENT SLEEPING COMFORTABLY. NO C/O PAIN, NO DISTRESS & NO OTHER CONCERNS NOTED AT THIS TIME. WILL MONITOR THE PATIENT CLOSELY FOR ANY CHANGES OR CONCERNS.
[2017-07-04] MEDS: MORPHINE SULFATE INJ 2 MG/ML DISP.SYRIN IV PRN ×5 (01:41→21:22)
--- NOTE | 2017-07-04 01:45 | NUR ---
SLOTTER OPERATOR HELPER NOTES PATIENT C/O ABDOMINAL PAIN, PRN MORPHINE ADMINISTERED. WILL REASSESS INDICATED.
[2017-07-04] MEDS: LORAZEPAM 1 MG TABLET PO PRN (04:29)
--- NOTE | 2017-07-04 05:00 | NUR ---
EMBLEM CUTTER NOTES PATIENT SLEPT INTERMITTENTLY. PRN PAIN MEDICINE WAS EFFECTIVE. CONTINUING TO MONITOR.
--- NOTE | 2017-07-04 07:03 | NUR ---
BILL POSTER INSTALLER CLOSING NOTES PATIENT SLEEPING IN BED IN SEMI LUNA POSITION. ON O2 AT 2LPM VIA NC. BREATHING EVEN & UNLABORED. VITALS WNL. PRN PAIN MEDICINE GIVEN. WILL REASSESS INDICATED. BED IN LOW LOCKED POSITION. CALL LIGHT WITHIN REACH. ALL NEEDS MET. WILL ENDORSE TO AM SHIFT NURSE.
--- NOTE | 2017-07-04 07:15 | NUR ---
LAND CLASSIFIER OPENING NOTES RECEIVED PT FROM NIGHTSHIFT NURSE IN STABLE CONDITION. PT IS A/O X4. NO SOB OR SIGNS OF DISTRESS NOTED. BREATHING IS EVEN AND UNLABORED. PT DENIES PAIN AT THIS TIME. HE IS SR ON THE TELE MONITOR WITH A HR OF 61. AV SHUNT NOTED ON RIGHT UPPER ARM. BRUIT AUSCULTATED AND THRILL FELT. IV PRESENT ON LEFT HAND 20G HL. IV IS PATENT TO NS FLUSH AND INTACT. NO REDNESS OR SIGNS OF INFILTRATION NOTED. BED IN LOW LOCKED POSITION, SIDE RAILS UP X2, CALL LIGHT WITHIN REACH. WILL CONTINUE TO MONITOR.
[2017-07-04 07:32] LABS: BASOPHILS % (AUTO) 0.4 % (0.0-2.0); EOSINOPHILS # (AUTO) 0.1 /CMM (0.0-0.7); EOSINOPHILS % (AUTO) 1.8 % (0.0-6.0); HEMATOCRIT 28 % (39-51); HEMOGLOBIN 9.5 g/dL (13.5-17.5); LYMPHOCYTES # (AUTO) 0.6 /CMM (0.8-4.8); LYMPHOCYTES % (AUTO) 16.2 % (20.0-44.0); MEAN CORPUSCULAR HEMOGLOBIN 32 PG (26.0-33.0); MEAN CORPUSCULAR HGB CONC 34 g/dl (31.0-36.0); MEAN CORPUSCULAR VOLUME 94 fL (80-96); MONOCYTES # (AUTO) 0.3 /CMM (0.1-1.30); MONOCYTES % (AUTO) 7.6 % (2.0-12.0); NEUTROPHILS # (AUTO) 2.6 /CMM (1.8-8.9); PLATELET COUNT (AUTO) 90 /CMM (150-450); RDW COEFFICIENT OF VARIATION 14.6 (11.5-15.0); RED BLOOD CELL COUNT(AUTO) 3.01 MIL/uL (4.5-6.0); WHITE BLOOD COUNT (AUTO) 3.5 K/uL (4.3-11.0)
[2017-07-04 07:53] LABS: CALCIUM, SERUM 6.8 mg/dL (8.5-10.1); MAGNESIUM 2.5 mg/dL (1.8-2.4); PHOSPHORUS 6.9 mg/dL (2.5-4.9); POTASSIUM 4.6 mmol/L (3.5-5.1)
[2017-07-04 08:00] LABS: CREATININE 11.4 mg/dL (0.6-1.3)
[2017-07-04] MEDS: diphenhydrAMINE HCL 25 MG CAPSULE PO PRN ×2 (09:09→21:32)
[2017-07-04] MEDS: TENOFOVIR DISOPROXIL FUMARATE 300 MG TABLET PO SCH (09:28)
[2017-07-04] MEDS: EFAVIRENZ 600 MG TABLET PO SCH (09:28)
[2017-07-04] MEDS: LAMIVUDINE (150MG) 150 MG TABLET PO SCH (09:28)
[2017-07-04] MEDS: SEVELAMER CARBONATE 800 MG TABLET PO SCH ×3 (09:28→17:20)
[2017-07-04 10:29] LABS: BAND % (MANUAL) 1 % (0.0-5.0); EOSINOPHILS % (MANUAL) 1 % (0-4); LYMPHOCYTES % (MANUAL) 17 % (16-48); MONOCYTES % (MANUAL) 4 % (0-11.0); NEUTROPHILS % (MANUAL) 77 (42-76)
--- NOTE | 2017-07-04 18:50 | NUR ---
MS RN CLOSING NOTES PT REMAINS STABLE. NO ACUTE CHANGES IN CONDITION DURING SHIFT. ALL NEEDS WERE MET AND ANTICIPATED FOR. PT DENIES ANY PAIN AT THIS TIME. IV REMAINS PATENT AND INTACT. ALL SAFTEY MEASURES REMAIN IN PLACE. WILL ENDORSE TO NIGHTSHIFT NURSE FOR GUSTAVO
--- NOTE | 2017-07-04 19:30 | NUR ---
MS RN OPENING NOTES: PATIENT IN BED, AOX4, ON O2 AT 3 LPM VIA NC, BREATHING EVEN AND UNLABORED. APPEARS CALM, BUT COMPLAINS OF PAIN OVER ABDOMEN, NOW SCALED AT 5/10. DISCUSSED PAIN MANAGEMENT AND SCHEDULE FOR PAIN MEDS. PATIENT IS AGREEABLE. PIV OVER L HAND G 20 INTACT AND PATENT TO FLUSH. R ARM AV SHUNT WITH PALPABLE THRILL. PROVIDED FOR COMFORT AND SAFETY. BED IN LOWEST AND LOCKED POSITION, SIDERAILS UP X3. CALL LIGHT WITHIN REACH. WILL CONT TO MONITOR.
--- NOTE | 2017-07-04 21:22 | NUR ---
RN NOTES: PT COMPLAINED OF 10/10 ABDOMINAL PAIN. ADMINISTERED MORPHINE 2 MG IV. WILL CONT TO MONITOR.
--- NOTE | 2017-07-05 00:40 | NUR ---
RN NOTES: PATIENT REQUESTING FOR IV BENADRYL, STATES THAT MORPHINE MAKES HIS IV SITE ITCH, AND IT TAKES A LONG TIME FOR HIM TO FEEL THE EFFECTS OF PO BENADRYL. PATIENT ALSO REQUESTED IF MORPHINE CAN BE CHANGED TO DILAUDID, SAYING THAT IT DOES NOT CAUSE ITCHING. SPOKE TO DR ELIAS MD ORDERED FOR MORPHINE TO BE CHANGED TO DILAUDID 1 MG IV Q 4 PRN FOR SEVERE PAIN. NOTED AND CARRIED OUT.
[2017-07-05] MEDS ORDERED: HYDROMORPHONE 1 MG/1 ML DISP.SYRIN ONE ×2 (01:23→05:18)
[2017-07-05] MEDS: HYDROMORPHONE 1 MG/1 ML DISP.SYRIN IV PRN ×2 (01:31→05:37)
[2017-07-05 04:30] VITALS: BP 151/84
[2017-07-05] MEDS: LORAZEPAM 1 MG TABLET PO PRN (07:00)
--- NOTE | 2017-07-05 07:30 | NUR ---
MS RN CLOSING NOTES: PATIENT IN BED, AOX3, ON O2 AT 3 LPM VIA NC, BREATHING EVEN AND UNLABORED. HOWEVER, PATIENT IS COMPLAINIG THAT HE IS HAVING ANXIETY RIGHT NOW, ADMINISTERED ATIVAN 1 MG PO PRN AT 0702 AM. PATIENT STILL COMPLAINING OF ABDOMINAL PAIN AND ANXIETY. PROVIDED FOR COMFORT AND SAFETY. DUE MEDS GIVEN. BED IN LOWEST AND LOCKED POSITION ,SIDERAILS UP X2. ENDORSED TO SOHA MARR FOR GUSTAVO.
--- NOTE | 2017-07-05 07:43 | NUR ---
ms rn initial notes Received patient sitting in upright in bed, awake, patient feeling anxious, night nurse gave him the ativan 30 mins ago. Alert and oriented x 4, verbally responsive and able to make needs known. on full liquid diet. R arm AV shunt, left hand IV HL only. Kept patient clean and comfortable, will continue to monitor accordingly.
[2017-07-05 08:00] VITALS: BP 171/89
[2017-07-05] MEDS ORDERED: LACTOSE-FREE FOOD 237 ML LIQUID PO SCH (08:00)
[2017-07-05] MEDS: SEVELAMER CARBONATE 800 MG TABLET PO SCH ×2 (08:19→13:34)
[2017-07-05] MEDS: TENOFOVIR DISOPROXIL FUMARATE 300 MG TABLET PO SCH (08:19)
[2017-07-05] MEDS: EFAVIRENZ 600 MG TABLET PO SCH (08:20)
[2017-07-05] MEDS: LAMIVUDINE (150MG) 150 MG TABLET PO SCH (08:20)
[2017-07-05] MEDS: HYDROMORPHONE INJ 2 MG/ML DISP.SYRIN IV PRN ×2 (09:12→13:43)
--- NOTE | 2017-07-05 09:30 | NUR ---
ms rn notes Dr. Thomson came to see and examined the patient and ordered colonoscopy for 07/06/17, but patient refused the procedure and MD made aware. Will continue to monitor accordingly.
[2017-07-05] MEDS ORDERED: EPOETIN ALFA (10,000 UNIT) 10,000 UNIT/ML VIAL IV ONE (11:00)
[2017-07-05] MEDS ORDERED: diphenhydrAMINE HCL 50 MG/ML VIAL IV PRN (11:30)
--- NOTE | 2017-07-05 12:25 | NUR ---
MS RN NOTES Hemodialysis just finished with 2.5 liters output. right AV shunt dressing intact. Vital signs checked and within normal limit. Will continue to monitor accordingly.
--- NOTE | 2017-07-05 15:23 | NUR ---
ms pattern wheel maker notes Discharge instructions given to patient and able to understand instructions. Informed to make an appointment with his primary health care physician in 1-2 weeks and amenable. 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 Skin assessment done and patient refused pictures. Flu vaccine offered and patient refused he will receive it elsewhere, explained the risk and benefits x 3 and still refused. Pneumonia vaccine not given due to patient is <65 years old. Patient left the hospital via wheelchair accompanied by MAINFRAME SYSTEMS PROGRAMMER assigned in stable condition, no complaint of pain or discomfort noted, nor chest pain. Vital signs checked and recorded. MD and charge nurse aware.
== END 2017-07-05 16:41 | disposition home or self-care (01) | DRG 682 ==
LOC: ER 07:40 → TELE 10:16 → MED 07-04 10:17
PROVIDERS: ADMIT Internal Medicine; ATTEND Internal Medicine
PROC: 5A1D70Z Performance of Urinary Filtration, Intermittent, Less than 6 Hours Per Day (ICD-10-PCS; principal; 2017-07-03)
DX: I12.0 Hypertensive chronic kidney disease with stage 5 chronic kidney disease or end stage renal disease (principal); N18.6 End stage renal disease; E87.5 Hyperkalemia; K86.1 Other chronic pancreatitis; I87.1 Compression of vein; E83.9 Disorder of mineral metabolism, unspecified; Z99.2 Dependence on renal dialysis; I25.10 Atherosclerotic heart disease of native coronary artery without angina pectoris; D63.8 Anemia in other chronic diseases classified elsewhere; F17.210 Nicotine dependence, cigarettes, uncomplicated; F32.9 Major depressive disorder, single episode, unspecified; F41.9 Anxiety disorder, unspecified; K62.89 Other specified diseases of anus and rectum
CPT/HCPCS: 36415; 71010-TC; 74020-TC; 80048-TC; 80061-TC; 80076-TC; 83690-TC; 83735-TC; 84100-TC; 85025-TC; 85730-TC; 87081-TC; 90935-TC; A4606; A6402; A6403; J0885; J1170; J1200; J2270; J2405; Q0163; Z7610

== ENCOUNTER 2018-02-15 22:03 | Inpatient (IN) | payer MEDICARE, OTHER ==
[~2018-02-15] VITALS: Ht 180.3 cm; Wt 66.4 kg
[~2018-02-15 22:03] MED LIST changes: +LAMI300T PO; -LORA0.5T PO; +LORA1TAB PO; +TENO300T5 PO
--- NOTE | 2018-02-15 22:12 | NUR ---
PT TO ER BED 13. BIBRA C/O CP WITH N/V X 40 MIN. DENIES SOB. NITRO X 2 AND ASA GIVEN CHIEF CONCIERGE. PT PLACED IN GOWN AND ON WINDOW TRIMMER APPRENTICE. VSS/RESP EVEN UNLABORED/NAD NOTED/SKIN WARM AND DRY/AFEBRILE/AOX4. AWAITING MD VALLE.
--- NOTE | 2018-02-15 22:20 | NUR ---
AT BEDSIDE FOR EVAL.
--- NOTE | 2018-02-15 22:25 | NUR ---
CALLED NURSING SUP. FOR TELE BED
--- NOTE | 2018-02-15 22:31 | NUR ---
LAB AT BEDSIDE FOR DRAW.
--- NOTE | 2018-02-15 22:33 | NUR ---
EMT AT BEDSIDE FOR EKG.
--- NOTE | 2018-02-15 22:40 | NUR ---
XRAY AT BEDSIDE FOR CXR.
[2018-02-15 22:49] LABS: BASOPHILS % (AUTO) 0.4 % (0.0-2.0); EOSINOPHILS % (AUTO) 1.2 % (0.0-6.0); HEMATOCRIT 31 % (39-51); LYMPHOCYTES # (AUTO) 0.5 /CMM (0.8-4.8); LYMPHOCYTES % (AUTO) 15.5 % (20.0-44.0); MEAN CORPUSCULAR HGB CONC 33 g/dl (31.0-36.0); MEAN CORPUSCULAR VOLUME 90 fL (80-96); MONOCYTES # (AUTO) 0.4 /CMM (0.1-1.30); MONOCYTES % (AUTO) 11.6 % (2.0-12.0); NEUTROPHILS # (AUTO) 2.5 /CMM (1.8-8.9); NEUTROPHILS % (AUTO) 71.3 % (43.0-81.0); PLATELET COUNT (AUTO) 112 /CMM (150-450); RDW COEFFICIENT OF VARIATION 15.6 (11.5-15.0); RED BLOOD CELL COUNT(AUTO) 3.42 MIL/uL (4.5-6.0); WHITE BLOOD COUNT (AUTO) 3.5 K/uL (4.3-11.0)
[2018-02-15] MEDS ORDERED: DIPH1TAB PO (22:52)
[2018-02-15 23:03] LABS: CALCIUM, SERUM 7.5 mg/dL (8.5-10.1); CARBON DIOXIDE 29 mmol/L (21-32); CHLORIDE 97 mmol/L (98-107); GLUCOSE 90 mg/dL (74-106); POTASSIUM 4.2 mmol/L (3.5-5.1); SODIUM SERUM 141 mmol/L (136-145); UREA NITROGEN, BLOOD 65 mg/dL (7-18)
[2018-02-15 23:06] LABS: INR 1.03 (0.87-1.13)
[2018-02-15 23:11] LABS: TROPONIN I < 0.017 ng/mL (0.00-0.056)
[2018-02-15 23:15] LABS: CREATININE 14.2 mg/dL (0.6-1.3)
[2018-02-15 23:17] LABS: B-TYPE NATRIURETIC PEPTIDE 5119 PG/ML (0-125)
--- NOTE | 2018-02-15 23:21 | NUR ---
TELE 314-2 FOR CHEST PAIN AND CHF, ALENA MIRANDA ADMITTING
--- NOTE | 2018-02-15 23:48 | NUR ---
REPORT GIVEN TO TEJINDER MEDELLIN FOR GUSTAVO.
[2018-02-16] VITALS (9 sets, daily range): BP systolic 123–168; BP diastolic 66–84
--- NOTE | 2018-02-16 00:06 | NUR ---
PT TRANSPORTED VIA STRETCHER TO TELE 314.2 ON COSTUMER ASSISTANT WITH RN PER ACLS PROTOCOL. VSS.
--- NOTE | 2018-02-16 00:10 | NUR ---
ADMISSION NOTED: REPORT TAKEN BY TEJINDER MEDELLIN. PT BROUGHT TO THE UNIT VIA GURNEY, PT CAME TO ER DUE TO CHEST PAIN RADIATING TO BILATERAL ARMS, AND WAS GIVEN NITRO SPRAY AND ASPIRIN IN THE FIELD, NO MEDICATION GIVEN IN ER. PT ORIENTED TO UNI8T POLICY AND USE OF CALL LIGHT. PT HAS LEFT HAND IV ACCESS PATENT AND FLUSHING WELL, ON HL. ANNABELLA HD ACCESS IN PLACED, WITH DRESSING. LAST HD WAS 02/15/18 WITH 3.8L OUTPUT. PT ON HD T--SAT. POSTED A NOTE INSIDE THE ROOM FOR BP AND BLOOD DRAW PRECAUTIONS, FOR ANNABELLA. TELE MONITORING IN PLACED ON SINUS RHYTHM HR 50. PLACED ON 2L VIA NC FOR BREATHING SUPPORT. PT C/O CHEST PAIN THAT COMES AND GO. SKIN ASSESSMENT PERFORMED AND NO SKIN ISSUES NOTED EXCEPT FOR OLD HD ACCESS SITE ON FRAN AND CHEST AREA. INVENTORY OF BELONGINGS COMPLETED BY AMPARO IMMACULATE. ALSO PT'S HOME MEDS WILL BE SENT TO PHARMACY. SAFETY PRECAUTIONS FOR FALL INITIATED, CALL LIGHT IN REACH, WILL CONTINUE MONITORING PT.
--- NOTE | 2018-02-16 00:30 | NUR ---
RN NOTES: PAGED EPIC LENS POLISHER REGARDING ADMITTING ORDERS
--- NOTE | 2018-02-16 01:29 | NUR ---
RN NOTES: RECEIVED CALL FROM [place] MACHINE OPERATOR MD, PER MD HE WILL PUT IN ALL THE ORDERS
--- NOTE | 2018-02-16 01:58 | NUR ---
RN NOTES: PT ON SINUS ARRHYTHMIA HR 55
[2018-02-16] MEDS ORDERED: Z GUARD REMEDY 2 OZ OINT TP PRN (02:00)
[2018-02-16] MEDS ORDERED: ONDANSETRON HCL/PF 4 MG/2 ML VIAL IVP PRN (02:00)
[2018-02-16] MEDS ORDERED: MAGNESIUM HYDROXIDE 30 ML UDC PO PRN (02:00)
[2018-02-16] MEDS ORDERED: HYDROCODONE/APAP 5/325MG 1 EACH TABLET PO PRN (02:00)
[2018-02-16] MEDS ORDERED: ZOLPIDEM TARTRATE 5 MG TABLET PO PRN (02:00)
[2018-02-16] MEDS ORDERED: MAG HYDROX/AL HYDROX/SIMETH 30 ML UDC PO PRN (02:00)
[2018-02-16] MEDS ORDERED: ACETAMINOPHEN 325 MG TABLET PO PRN (02:00)
--- NOTE | 2018-02-16 02:00 | NUR ---
RN NOTES: ASSESS PT'S CHEST PAIN MD ALREADY PLACED AN ORDER, PER PT HE DOESNT HAVE ANY CHEST PAIN RIGHT NOW, AND HIS ANXIETY IS RELIEVE, HE ALSO ADDED HE WILL JUST SLEEP. DISCUSSED WITH PT REGARDING PLAN OF CARE SUCH CONSULT IN AM FOR MANAGER PHOTO AND NEPHRO, ALSO INFORMED ABOUT PAIN MEDICATION AVAILABLE. PT UNDERSTAND AND AGREE
--- NOTE | 2018-02-16 03:29 | NUR ---
rn notes: latest rhythm, sinus rhythm hr 67
[2018-02-16] MEDS ORDERED: NITROGLYCERIN 0.4 MG/TAB BOTTLE SL PRN (03:30)
[2018-02-16 06:35] LABS: ALBUMIN 3.6 g/dL (3.4-5.0); BILIRUBIN,TOTAL 0.4 mg/dL (0.2-1.0); CALCIUM, SERUM 7.1 mg/dL (8.5-10.1); MAGNESIUM 2.9 mg/dL (1.8-2.4); POTASSIUM 5.9 mmol/L (3.5-5.1); TOTAL PROTEIN, SERUM 8.7 g/dL (6.4-8.2)
[2018-02-16 06:36] LABS: BASOPHILS % (AUTO) 0.7 % (0.0-2.0); EOSINOPHILS % (AUTO) 1.5 % (0.0-6.0); HEMATOCRIT 31 % (39-51); HEMOGLOBIN 10.2 g/dL (13.5-17.5); LYMPHOCYTES # (AUTO) 0.7 /CMM (0.8-4.8); LYMPHOCYTES % (AUTO) 19.7 % (20.0-44.0); MEAN CORPUSCULAR HGB CONC 33 g/dl (31.0-36.0); MEAN CORPUSCULAR VOLUME 90 fL (80-96); MONOCYTES # (AUTO) 0.4 /CMM (0.1-1.30); MONOCYTES % (AUTO) 10.3 % (2.0-12.0); NEUTROPHILS # (AUTO) 2.4 /CMM (1.8-8.9); NEUTROPHILS % (AUTO) 67.8 % (43.0-81.0); PLATELET COUNT (AUTO) 107 /CMM (150-450); RDW COEFFICIENT OF VARIATION 15.8 (11.5-15.0); RED BLOOD CELL COUNT(AUTO) 3.45 MIL/uL (4.5-6.0); WHITE BLOOD COUNT (AUTO) 3.5 K/uL (4.3-11.0)
[2018-02-16 06:37] LABS: CREATININE 14.5 mg/dL (0.6-1.3)
[2018-02-16 06:41] LABS: THYROID STIMULATING HORMONE 1.414 uIU/mL (0.358-3.74)
--- NOTE | 2018-02-16 06:49 | NUR ---
RN CLOSING NOTES: PT IN BED, AWAKE, A/O X3 ON 2L VIA NC RESPIRATION EVEN AND UNLABORED. DENIES ANY CHEST PAIN OR DISCOMFORT AT THIS TIME. ON SINUS MINNIE HR 56. IV ACCESS REMAINS PATENT AND FLUSHING WELL, ON HL. VS REMAINS STABLE, NEEDS ATTENDED. FOR CARDIO AND NEPHRO CONSULT TODAY. WILL HOLD THE BREAKFAST TRAY UNTIL SEEN BY CONSULTING SYSTEMS ENGINEER IN CASE CARDIO MD WOULD LIKE TO ORDER SOME TEST. SAFETY PRECAUTIONS FOR FALL REMAINS ENGAGED, CALL LIGHT IN REACH, WILL ENDORSE TO DAY RN FOR GUSTAVO.
--- NOTE | 2018-02-16 07:00 | NUR ---
RAILROAD SIGNAL TECHNICIAN INITIAL NOTES: Received patient on bed, asleep but easily woken. on 2L o2 via NC. Breathing even and unlabored. Peripheral IV on L hand g20, HL. No complaints of pain or discomfort as of this time. Call monique within reach. Bed in low, locked position. Patient stable as endorsed by the shift engineer RN.
[2018-02-16] MEDS: ASPIRIN 81 MG TAB.CHEW PO SCH (08:20)
[2018-02-16] MEDS: SEVELAMER CARBONATE 800 MG TABLET PO SCH ×3 (08:22→17:37)
[2018-02-16] MEDS: PANTOPRAZOLE 40 MG TABLET.DR PO SCH (08:22)
[2018-02-16] MEDS: METOPROLOL TARTRATE 25 MG TABLET PO SCH ×2 (08:25→21:25)
[2018-02-16] MEDS: EFAVIRENZ 600 MG TABLET PO SCH (09:58)
[2018-02-16] MEDS: TENOFOVIR DISOPROXIL FUMARATE 300 MG TABLET PO SCH (09:58)
[2018-02-16] MEDS: LAMIVUDINE (150MG) 150 MG TABLET PO SCH (18:30)
[2018-02-16] MEDS: LORAZEPAM 1 MG TABLET PO PRN (18:30)
[2018-02-16] MEDS: MORPHINE SULFATE INJ 4 MG/ML DISP.SYRIN IV PRN ×2 (19:09→23:36)
--- NOTE | 2018-02-16 19:25 | NUR ---
RN closing notes: Patient resting in bed comfortably. Hemodialysis done, tolerating well, 3L out. IV access on L hand g20 intact and patent. Patient complaining of back pain, medications given as ordered. No other complaints. Call monique within reach. Bed in low, locked position. Patient stable as of this time. Endorsed to mine shifter RN for continuity of care.
--- NOTE | 2018-02-16 19:30 | NUR ---
MS/ANIMAL CYTOLOGIST; RECEIVED PT'S REPORTS FROM THE DAY SHIFT RN FOR GUSTAVO. AT THIS TIME PT IN BED ON THE PHONE TALKING. BREATHING NON LABORED. WITH O2 2L NC ON.PT SAID THE PAIN IS BETTER. AV SHUNT ON ANNABELLA INTACT WITH DRESSING. HL ON LH INTACT. STATES WITH SOME ITCHING ON LT HAND AND ARM. BED ON LOWER POSITION AND LOCKED FOR SAFETY. SIDE RAILS X 2 ARE UP FOR SAFETY. WILL CONTINUE TO MONITOR. CALL LIGHT WITHIN REACH.
[2018-02-16] MEDS: diphenhydrAMINE HCL 25 MG CAPSULE PO PRN (21:38)
[2018-02-16] MEDS ORDERED: ATORVASTATIN 10 MG TABLET PO SCH (22:00)
--- NOTE | 2018-02-16 23:40 | NUR ---
MS RN NOTES: PT COMPLAINING OF BILATERAL FEET AND LEGS 9/10 PAIN. BP WAS 157/84 HR 59. PT WAS ADMINISTERED MORPHINE 4MG IV ON R HAND IV. WILL CONTINUE TO MONITOR PT.
--- NOTE | 2018-02-17 00:20 | NUR ---
MS/REALTIME REPORTER; AT THIS TIME PT AWAKE HIS PAIN LEVEL IS 7 OUT OF 10. ATE ANAYA DURAN.
--- NOTE | 2018-02-17 01:15 | NUR ---
MS/PELT INSPECTOR; PT ASKED FOR ATIVAN. I CHECKED THE EMAR NOTED PT HAD IT 6 HOURS AGO AND NOT DUE YET. I TOLD THE PT AND EXPLAINED TO HIM NOT DUE YET AND HE WANTS BENRIARYL.
[2018-02-17] MEDS: diphenhydrAMINE HCL 25 MG CAPSULE PO PRN (01:25)
--- NOTE | 2018-02-17 01:25 | NUR ---
MS/CHAPLAINCY; BENADRYL 50 MG PO CAP. GIVEN Q6 PRN. WILL MONITOR.
--- NOTE | 2018-02-17 03:30 | NUR ---
MS/CHEMISTRY TUTOR; PER WINDOW CASER PT C/O NAUSEA AND VOMITING. I TOLD THE RN TO GIVE PT ZOFRAN IV ORDERED PRN.
--- NOTE | 2018-02-17 03:35 | NUR ---
MS/BIOMETRICS EXPERIMENTALIST; PT VOMITED LIQUID VOMITUS WITH FOOD PARTICLES 200 ML.
--- NOTE | 2018-02-17 03:50 | NUR ---
MS/CONCRETE TESTER; PT C/O AGAIN OF PAIN TO HIS BACK, SHOULDERS BILATERAL LEGS AND BOTH FEET HE SAIID WITH PAIN LEVEL OF 10 OUT OF 10. BP 144/ 71 , P 54 AND I TOLD THE RN FOR PAIN SHOT OF THIS PT.
[2018-02-17] MEDS: MORPHINE SULFATE INJ 4 MG/ML DISP.SYRIN IV PRN (04:00)
--- NOTE | 2018-02-17 04:02 | NUR ---
MS RN NOTES: PT'S BP WAS 144/71 HR 54. PT COMPLAINING OF 10/10 UPPER BACK AND BILATERAL FEET PAIN. PT WAS ADMINISTERED MORPHINE VIA IV. WILL CONTINUE TO MONITOR PT.
--- NOTE | 2018-02-17 06:35 | NUR ---
MS/HEALTH INFORMATION MANAGERS; PT ASKING FOR ATIVAN C/O ANXIETY. ATIVAN 1 MG PO TAB. BID PRN GIVEN.
[2018-02-17] MEDS: LORAZEPAM 1 MG TABLET PO PRN (06:38)
--- NOTE | 2018-02-17 07:00 | NUR ---
MS/APARTMENT GROUNDSKEEPER; PT SLEPT AT SHORT INTERVALS. BREATHING NON LABORED. WILL ENDORSE TO THE DAY SHIFT NURSE FOR GUSTAVO.
--- NOTE | 2018-02-17 07:06 | NUR ---
MS RN NOTES PATIENT IN BED EYES CLOSED, RESPOND TO VERBAL AND TACTILE STIMULI. NO ACUTE DISTRESS NOTED, BREATHING UNLABORED. NO SOB NOTED. IV ACCESS PATENT AND INTACT. SAFETY MEASURES IN PLACE. CALL LIGHT WITHIN REACH. WILL CONTINUE TO MONITOR ACCORDINGLY.
[2018-02-17 07:15] LABS: BASOPHILS % (AUTO) 0.3 % (0.0-2.0); EOSINOPHILS % (AUTO) 1.9 % (0.0-6.0); HEMATOCRIT 34 % (39-51); HEMOGLOBIN 11.3 g/dL (13.5-17.5); LYMPHOCYTES # (AUTO) 0.4 /CMM (0.8-4.8); LYMPHOCYTES % (AUTO) 11.7 % (20.0-44.0); MEAN CORPUSCULAR HGB CONC 33 g/dl (31.0-36.0); MEAN CORPUSCULAR VOLUME 89 fL (80-96); MONOCYTES # (AUTO) 0.3 /CMM (0.1-1.30); MONOCYTES % (AUTO) 8.6 % (2.0-12.0); NEUTROPHILS % (AUTO) 77.5 % (43.0-81.0); PLATELET COUNT (AUTO) 114 /CMM (150-450); RDW COEFFICIENT OF VARIATION 15.3 (11.5-15.0); WHITE BLOOD COUNT (AUTO) 3.9 K/uL (4.3-11.0)
[2018-02-17 07:39] LABS: ALANINE AMINOTRANSFERASE 14 U/L (12-78); ALBUMIN 3.8 g/dL (3.4-5.0); ALKALINE PHOSPHATASE 148 U/L (46-116); ASPARTATE AMINOTRANSFERASE 11 U/L (15-37); BILIRUBIN,TOTAL 0.4 mg/dL (0.2-1.0); CALCIUM, SERUM 7.9 mg/dL (8.5-10.1); CARBON DIOXIDE 31 mmol/L (21-32); CHLORIDE 94 mmol/L (98-107); GLUCOSE 92 mg/dL (74-106); MAGNESIUM 2.7 mg/dL (1.8-2.4); PHOSPHORUS 7.1 mg/dL (2.5-4.9); POTASSIUM 4.8 mmol/L (3.5-5.1); SODIUM SERUM 136 mmol/L (136-145); TOTAL PROTEIN, SERUM 9.2 g/dL (6.4-8.2); UREA NITROGEN, BLOOD 47 mg/dL (7-18)
[2018-02-17 07:41] LABS: TROPONIN I < 0.017 ng/mL (0.00-0.056)
[2018-02-17 07:49] LABS: CREATININE 11.9 mg/dL (0.6-1.3)
[2018-02-17 08:00] VITALS: BP 123/67
[2018-02-17] MEDS: PANTOPRAZOLE 40 MG TABLET.DR PO SCH (08:41)
[2018-02-17] MEDS: ASPIRIN 81 MG TAB.CHEW PO SCH (08:41)
[2018-02-17] MEDS: SEVELAMER CARBONATE 800 MG TABLET PO SCH ×3 (08:43→17:51)
[2018-02-17] MEDS: METOPROLOL TARTRATE 25 MG TABLET PO SCH (08:48)
--- NOTE | 2018-02-17 08:48 | NUR ---
MS RN NOTES PATIENT REFUSED METOPROLOL DESPITE OF EXPLANATION OF RISK AND BENEFITS.
[2018-02-17] MEDS: EFAVIRENZ 600 MG TABLET PO SCH (09:46)
[2018-02-17] MEDS: LAMIVUDINE (150MG) 150 MG TABLET PO SCH (09:46)
[2018-02-17] MEDS: TENOFOVIR DISOPROXIL FUMARATE 300 MG TABLET PO SCH (09:46)
--- NOTE | 2018-02-17 13:25 | NUR ---
MS RN NOTES PATIENT REFUSED RENVELA DESPITE OF EXPLANATION OF RISK AND BENEFITS.
--- NOTE | 2018-02-17 16:25 | NUR ---
MS RN NOTES SEEN AND EVALUATED BY DR BILLIE HOANG WITH NEW ORDERS MADE, NOTED AND CARRIED OUT.
--- NOTE | 2018-02-17 18:50 | NUR ---
MS RIPSAW MATCHER NOTES PATIENT DISCHARGED IN STABLE CONDITION. NO ACUTE DISTRESS NOTED. IV ACCESS REMOVED, NO BLEEDING NOTED. DISCHARGE INSTRUCTIONS GIVEN TO THE PATIENT INCLUDING APPOINTMENT AT [facility], VERBALIZED UNDERSTANDING. ALL BELONGINGS ACCOUNTED FOR INCLUDING HOME MEDICATIONS. WHEELED TO THE LOBBY, ASSISTED TO A PRIVATE CAR PICKED UP BY MOTHER.
[2018-02-18] MEDS ORDERED: REGADENOSON 0.4 MG/5 ML DISP.SYRIN IVP ONE (08:00)
== END 2018-02-17 18:50 | disposition home or self-care (01) | DRG 205 ==
LOC: ER 22:04 → TELE 23:34 → MED 02-16 08:39
PROVIDERS: ADMIT Hospitalist; ATTEND Hospitalist
PROC: 5A1D70Z Performance of Urinary Filtration, Intermittent, Less than 6 Hours Per Day (ICD-10-PCS; principal; 2018-02-16)
DX: M94.0 Chondrocostal junction syndrome [Tietze] (principal); N18.6 End stage renal disease; I13.2 Hypertensive heart and chronic kidney disease with heart failure and with stage 5 chronic kidney disease, or end stage renal disease; D69.6 Thrombocytopenia, unspecified; E87.8 Other disorders of electrolyte and fluid balance, not elsewhere classified; I27.20 Pulmonary hypertension, unspecified; E87.5 Hyperkalemia; E83.39 Other disorders of phosphorus metabolism; I50.33 Acute on chronic diastolic (congestive) heart failure; I31.9 Disease of pericardium, unspecified; I48.92 Unspecified atrial flutter; Z94.0 Kidney transplant status; I48.91 Unspecified atrial fibrillation; I11.0 Hypertensive heart disease with heart failure; D63.8 Anemia in other chronic diseases classified elsewhere; F32.9 Major depressive disorder, single episode, unspecified; G89.29 Other chronic pain; Z99.2 Dependence on renal dialysis; Z91.012 Allergy to eggs; Z79.899 Other long term (current) drug therapy; E03.9 Hypothyroidism, unspecified; M85.9 Disorder of bone density and structure, unspecified; I34.0 Nonrheumatic mitral (valve) insufficiency; F11.10 Opioid abuse, uncomplicated; Z76.5 Malingerer [conscious simulation]; F17.200 Nicotine dependence, unspecified, uncomplicated; F29 Unspecified psychosis not due to a substance or known physiological condition; I86.8 Varicose veins of other specified sites; I25.10 Atherosclerotic heart disease of native coronary artery without angina pectoris
CPT/HCPCS: 36415; 71045-TC; 80048-TC; 80053-TC; 80061-TC; 83735-TC; 83880; 84100-TC; 84443-TC; 84484-TC; 85025-TC; 85730-TC; 87081-TC; 90935-TC; 93307-TC; A4606; J2270; J2405; Q0163; Z7610

== ENCOUNTER 2019-09-24 15:52 | Inpatient (IN) | payer MEDICARE, OTHER ==
[~2019-09-24] VITALS: Ht 180.3 cm; Wt 66.2 kg
[~2019-09-24 15:52] MED LIST changes: +DIPH1TAB PO; +DIPH25CA51 PO; -DIPH25CA6 PO
[2019-09-24 16:16] LABS: BASOPHILS # (AUTO) 0.1 /CMM (0.0-0.2); EOSINOPHILS % (AUTO) 0.8 % (0.0-6.0); HEMATOCRIT 30 % (39-51); HEMOGLOBIN 9.8 g/dL (13.5-17.5); LYMPHOCYTES # (AUTO) 0.9 /CMM (0.8-4.8); LYMPHOCYTES % (AUTO) 18.3 % (20.0-44.0); MEAN CORPUSCULAR HGB CONC 33 g/dl (31.0-36.0); MEAN CORPUSCULAR VOLUME 94 fL (80-96); MONOCYTES # (AUTO) 0.5 /CMM (0.1-1.30); MONOCYTES % (AUTO) 10.4 % (2.0-12.0); NEUTROPHILS # (AUTO) 3.4 /CMM (1.8-8.9); NEUTROPHILS % (AUTO) 69.5 % (43.0-81.0); PLATELET COUNT (AUTO) 134 /CMM (150-450); RED BLOOD CELL COUNT(AUTO) 3.21 MIL/uL (4.5-6.0); WHITE BLOOD COUNT (AUTO) 4.9 K/uL (4.3-11.0)
[2019-09-24] MEDS ORDERED: HYDROMORPHONE 1 MG/1 ML DISP.SYRIN ONE ×2 (16:25→17:02)
[2019-09-24] MEDS ORDERED: ONDANSETRON HCL/PF 4 MG/2 ML VIAL ONE (16:25)
[2019-09-24] MEDS ORDERED: ONDANSETRON HCL/PF 4 MG/2 ML VIAL IV ONE (16:30)
[2019-09-24] MEDS ORDERED: HYDROMORPHONE INJ 2 MG/ML DISP.SYRIN IV ONE (16:30)
[2019-09-24] MEDS ORDERED: IV NS 0.9% 1,000 ML BAG IV ONE (16:30)
--- NOTE | 2019-09-24 16:34 | NUR ---
bibbrother, c/o abd pain, nausea vomiting since 4am,on HD last HD yesterday. On room air, breathing evenly and unlabored. connected to the monitor and pulse ox. Kept comfortable, will continue to monitor accordingly.
[2019-09-24 16:44] LABS: CALCIUM, SERUM 8.2 mg/dL (8.5-10.1); CARBON DIOXIDE 27 mmol/L (21-32); CHLORIDE 101 mmol/L (98-107); GLUCOSE 105 mg/dL (74-106); POTASSIUM 5.3 mmol/L (3.5-5.1); SODIUM SERUM 140 mmol/L (136-145); UREA NITROGEN, BLOOD 47 mg/dL (7-18)
[2019-09-24 16:50] LABS: ALANINE AMINOTRANSFERASE 19 U/L (12-78); ALBUMIN 3.8 g/dL (3.4-5.0); ALKALINE PHOSPHATASE 109 U/L (46-116); ASPARTATE AMINOTRANSFERASE 17 U/L (15-37); BILIRUBIN,DIRECT 0.1 mg/dL (0.0-0.2); BILIRUBIN,TOTAL 0.3 mg/dL (0.2-1.0); LIPASE 1466 U/L (73-393); TOTAL PROTEIN, SERUM 9.2 g/dL (6.4-8.2)
[2019-09-24 16:52] LABS: CREATININE 12.4 mg/dL (0.6-1.3)
[2019-09-24] MEDS ORDERED: HYDROMORPHONE 1 MG/1 ML DISP.SYRIN IV ONE ×2 (17:00→23:39)
[2019-09-24] MEDS ORDERED: diphenhydrAMINE HCL 25 MG CAPSULE ONE (17:07)
--- NOTE | 2019-09-24 17:25 | NUR ---
EXTENSION SERVICE SPECIALIST IN CHARGE/MED RECON UNABLE TO UPDATE HOME MEDICATION INFO AT THIS TIME. PATIENT UNABLE TO PROVIDE ANY INFO, PER PATIENT "YOU CAN GET THE INFORMATION FROM [facility]". CALLED AND SPOKE WITH STAFF WHO SAID WILL FAX THE INFORMATION LATER.
[2019-09-24] MEDS ORDERED: diphenhydrAMINE HCL 25 MG CAPSULE PO ONE (17:30)
[2019-09-24] MEDS ORDERED: IV NS 0.9% 1,000 ML IV PRN (17:48)
[2019-09-24] MEDS ORDERED: ZOLP5TAB2 PO (17:57)
[2019-09-24] MEDS ORDERED: AMIO200T4 PO (17:57)
[2019-09-24] MEDS ORDERED: CHOL200026 PO (17:57)
[2019-09-24] MEDS ORDERED: TENO300T5 PO (17:57)
[2019-09-24] MEDS ORDERED: DIPH1TAB28 PO (17:57)
[2019-09-24] MEDS ORDERED: DIPH50CA37 PO (17:57)
[2019-09-24] MEDS ORDERED: METO50TA16 PO (17:57)
[2019-09-24] MEDS ORDERED: ALPR0.25 PO (17:57)
[2019-09-24] MEDS ORDERED: LAMI1TAB PO (17:57)
[2019-09-24] MEDS ORDERED: LORA-259 PO (17:57)
[2019-09-24] MEDS ORDERED: CALC500T13 PO (17:57)
[2019-09-24] MEDS ORDERED: APIX2.5T PO (17:57)
[2019-09-24] MEDS ORDERED: HYDR-4354 PO (17:57)
[2019-09-24] MEDS ORDERED: CALC0.253 PO (17:57)
[2019-09-24] MEDS ORDERED: EFAV600T8 PO (17:57)
[2019-09-24] MEDS ORDERED: CALC667T2 PO (17:57)
[2019-09-24] MEDS ORDERED: FOLI0.8T23 PO (17:57)
[2019-09-24] MEDS ORDERED: CLON0.1T PO ×2 (17:57)
[2019-09-24] MEDS ORDERED: BENA20TA9 PO (17:57)
[2019-09-24] MEDS ORDERED: BISA-79 PO (17:57)
[2019-09-24] MEDS ORDERED: HYDR-4077 PO ×2 (17:57)
[2019-09-24] MEDS ORDERED: DOCU-141 PO (17:57)
[2019-09-24] MEDS ORDERED: LORAZEPAM INJ 2 MG/ML VIAL IV PRN (18:00)
[2019-09-24] MEDS ORDERED: TEMAZEPAM 15 MG CAPSULE PO PRN (18:00)
--- NOTE | 2019-09-24 18:00 | NUR ---
ARTERIAL EMBALMER/MED RECON HOME MEDICATION LIST OBTAINED FROM [facility]. CALLED AND SPOKE WITH LEXI-MOTHER (PER PATIENT REQUEST) TO VERIFY INFORMATION OBTAINED. NOTED LIST WITH ALLERGY WITH MORPHINE SULFATE, PATIENT VERIFIED INFO. DR. MAURO AWARE WITH NO NEW ORDER.
--- NOTE | 2019-09-24 18:06 | NUR ---
NURSING SUP MED SURG BED 108.
--- NOTE | 2019-09-24 18:10 | NUR ---
report given to Kobe MARR for jorge.
[2019-09-24] MEDS ORDERED: hydrALAZINE HCL 50 MG TABLET PO PRN (18:30)
[2019-09-24] MEDS ORDERED: BISACODYL (5 MG) 5 MG TABLET.DR PO PRN (18:30)
[2019-09-24] MEDS ORDERED: DIPHENOXYLATE HCL/ATROP SULF 1 UDTAB TABLET PO PRN (18:30)
[2019-09-24] MEDS ORDERED: CLONIDINE HCL 0.1 MG TABLET PO PRN (18:30)
--- NOTE | 2019-09-24 18:36 | NUR ---
wheeled patient via gurney going to room 108 RN at bedside to assume care.
--- NOTE | 2019-09-24 19:50 | NUR ---
MS RN OPENING/ADMISSION NOTE RECEIVED PATIENT IN BED. A/OX4. ON OXYGEN 4L/MIN VIA NASAL CANNULA, RESPIRATIONS ARE EVEN AND UNLABORED. NO S/S SOB NOTED. IN NO APPARENT DISTRESS. C/O PAIN 10/10 IN ABDOMEN, INFORMED I WILL GET PAIN MEDIATION. IV ACCESS IN FRAN #22G, ANNABELLA AV SHUNT PRESENT. INATAL PHYSICAL ASSESSMENT COMPLETED AT THIS TIME. INFORMED I WILL CONDUCT A SKIN ASSESSMENT LATER IN THE SHIFT AND TAKE PICTURES, PATIENT AGREED. BED IS LOW AND LOCKED, HOB IN HIGH FOWLERS POSITION, SIDE RAILS UP X2, CALL LIGHT WITHIN REACH, WILL CONTINUE TO MONITOR.
[2019-09-24 20:00] VITALS: BP 136/94
--- NOTE | 2019-09-24 20:00 | NUR ---
MS RN NOTE RECEIVED A CALL FROM PHARMACY TO ASK PATIENT IF HE HAS HIS HIV MEDICATIONS. PATIENT DOES NOT HAVE HIV MEDICATIONS AT THIS TIME. INFORMED HIM TO HAVE A FAMILY MEMBER BRING THEM IN SOON POSSIBLE. HE STATED HE LEFT A MESSAGE FOR HIS FAMILY TO BRING THE MEDICATIONS IN.
[2019-09-24] MEDS: DOCUSATE SODIUM 100 MG CAPSULE PO SCH (20:15)
[2019-09-24] MEDS: HYDROMORPHONE INJ 2 MG/ML DISP.SYRIN IV PRN (20:16)
--- NOTE | 2019-09-24 20:17 | NUR ---
MS MARR NOTE ADMINISTERED PRN DILUADID 1MG FOR PAIN 10/1O IN ABDOMEN. WILL CONTINUE TO MONITOR. JUANA MARR WITNESSED WASTE MEDICATION. Addendum: 09/25/19 at 0615 by SANGITA RENAE RN 150ML
[2019-09-24] MEDS: ONDANSETRON HCL/PF 4 MG/2 ML VIAL IVP PRN (23:00)
--- NOTE | 2019-09-24 23:09 | NUR ---
MS RN NOTE ADMINISTERED PRN ZOFRAN 4MG FOR C/O NAUSEA AND 1 EPISODE OF VOMIT. VOMIT IS CLEAR. WILL CONTINUE TO MONITOR.
--- NOTE | 2019-09-24 23:36 | NUR ---
MS RN NOTE CALLED CUPOLA OPERATOR INSULATION MD AND NOTIFY THAT THE PATIENT WANTS TO INCREASE PAIN MEDICATION D/T IN PAIN 02/24 AND MEDICATION IS NOT DUE YET. CURRENT PAIN MEDICATION IS DILAUDID 1MG Q4HR, PATIENT IS NPO, ASKED IF WOULD LIKE TO INCREASE DOSE OR FREQUENCY. MD TELEPHONE ORDER: GIVE DILAUDID 1MG IV PUSH ONE TIME NOW. ORDER READ BACK, NOTED, AND CARRIED OUT.
[2019-09-24] MEDS: diphenhydrAMINE HCL 50 MG/ML VIAL IV PRN (23:51)
--- NOTE | 2019-09-24 23:52 | NUR ---
MS RN NOTE ADMINISTERED PRN BENADRYL 25MG PER PATIENT REQUEST FOR . WILL CONTINUE TO MONITOR.
--- NOTE | 2019-09-25 01:00 | NUR ---
MS RN NOTE PICTURES TAKEN OF SKIN PROBLEMS AND PLACED IN CHART.
[2019-09-25] MEDS: HYDROMORPHONE INJ 2 MG/ML DISP.SYRIN IV PRN ×2 (04:16→14:11)
--- NOTE | 2019-09-25 04:20 | NUR ---
MS RN NOTE ADMINISTERED PRN DILAUDID 1MG FOR PAIN 8/10 IN ABDOMEN. WILL CONTINUE TO MONITOR.
--- NOTE | 2019-09-25 06:11 | NUR ---
MS RN CLOSING NOTE PATIENT IN BED. MAINTAINED NPO STATUS. A/OX4. ON OXYGEN 2L/MIN VIA NASAL CANNULA, RESPIRATIONS ARE EVEN AND UNLABORED. NO SOB NOTED. NO DISTRESS NOTED. C/O PAIN MANAGED WITH DILAUDID 1MG THROUGHOUT NIGHT. N/V MANAGED WITH ZOFRAN 4MG. IV ACCESS MAINTAINED IN FRAN #22G, ANNABELLA AV SHUNT PRESENT. BED REMAINS LOW AND LOCKED, HOB IN HIGH FOWLERS POSITION, SIDE RAILS UP X2, CALL LIGHT WITHIN REACH, WILL ENDORSE TO NEXT SHIFT.
[2019-09-25 06:29] LABS: EOSINOPHILS % (AUTO) 1.3 % (0.0-6.0); HEMATOCRIT 26 % (39-51); HEMOGLOBIN 8.6 g/dL (13.5-17.5); LYMPHOCYTES # (AUTO) 0.6 /CMM (0.8-4.8); MEAN CORPUSCULAR HGB CONC 33 g/dl (31.0-36.0); MEAN CORPUSCULAR VOLUME 93 fL (80-96); MONOCYTES # (AUTO) 0.4 /CMM (0.1-1.30); MONOCYTES % (AUTO) 10.6 % (2.0-12.0); NEUTROPHILS # (AUTO) 2.4 /CMM (1.8-8.9); NEUTROPHILS % (AUTO) 69.1 % (43.0-81.0); PLATELET COUNT (AUTO) 120 /CMM (150-450); RED BLOOD CELL COUNT(AUTO) 2.81 MIL/uL (4.5-6.0); WHITE BLOOD COUNT (AUTO) 3.5 K/uL (4.3-11.0)
[2019-09-25 06:58] LABS: CALCIUM, SERUM 7.3 mg/dL (8.5-10.1); MAGNESIUM 2.2 mg/dL (1.8-2.4); PHOSPHORUS 7.2 mg/dL (2.5-4.9); POTASSIUM 4.8 mmol/L (3.5-5.1)
[2019-09-25 07:14] LABS: CREATININE 13.1 mg/dL (0.6-1.3)
[2019-09-25] MEDS: CALCIUM ACETATE 667 MG TABLET PO SCH ×3 (08:00→18:25)
[2019-09-25] MEDS: CALCIUM CARBONATE 500 MG TAB.CHEW PO SCH ×3 (08:00→18:25)
[2019-09-25] MEDS: CLONIDINE HCL 0.1 MG TABLET PO SCH ×3 (09:00→17:00)
[2019-09-25] MEDS ORDERED: LAMIVUDINE/ZIDOVUDINE 150-300 1 TAB TABLET PO SCH (09:00)
[2019-09-25] MEDS: AMIODARONE HCL 200 MG TABLET PO SCH ×2 (09:00→17:00)
[2019-09-25] MEDS ORDERED: LAMIVUDINE (150MG) 150 MG TABLET PO SCH (09:00)
[2019-09-25] MEDS ORDERED: ZIDOVUDINE 100 MG CAPSULE PO SCH (09:00)
[2019-09-25] MEDS: METOPROLOL TARTRATE 50 MG TABLET PO SCH ×2 (09:00→17:00)
[2019-09-25] MEDS ORDERED: TENOFOVIR DISOPROXIL FUMARATE 300 MG TABLET PO SCH (09:00)
[2019-09-25] MEDS: hydrALAZINE HCL 50 MG TABLET PO SCH ×3 (09:00→17:00)
[2019-09-25] MEDS ORDERED: EFAVIRENZ 600 MG TABLET PO SCH ×2 (09:00)
[2019-09-25] MEDS: BENAZEPRIL HCL 20 MG TABLET PO SCH (09:00)
[2019-09-25] MEDS ORDERED: APIXABAN 2.5 MG TABLET PO SCH (09:00)
[2019-09-25] MEDS ORDERED: EPOETIN ALFA (10,000 UNIT) 10,000 UNIT/ML VIAL IV SCH (10:00)
[2019-09-25] MEDS: CALCITRIOL 0.25 MCG CAPSULE PO SCH (10:05)
[2019-09-25] MEDS: CHOLECALCIFEROL 1,000 UNIT TABLET (VIT D3) PO SCH (10:05)
[2019-09-25] MEDS: DOCUSATE SODIUM 100 MG CAPSULE PO SCH ×2 (10:12→20:30)
[2019-09-25] MEDS: VIT B CMPLX 3/FA/VIT C/BIOTIN 1 TAB TABLET PO SCH (10:13)
[2019-09-25] MEDS: SEVELAMER CARBONATE 800 MG TABLET PO SCH ×2 (13:50→18:25)
[2019-09-25] MEDS: diphenhydrAMINE HCL 50 MG/ML VIAL IV PRN ×2 (14:54→20:30)
[2019-09-25 16:00] VITALS: BP 118/58
--- NOTE | 2019-09-25 18:09 | NUR ---
patients meds withheld this morning because pt npo. later on midday, pt was taken off npo , but hd nurse stated to hold for dialysis. b/p 116/71. all antihypertensives withheld.
[2019-09-25] MEDS: ELIQUIS 2.5 MG PO SCH (18:39)
--- NOTE | 2019-09-25 19:05 | NUR ---
MS RN OPENING NOTES: RECEIVED PATIENT RESTING IN BED. A/O X4. NO SOB NOTED. COMPLAINED OF PAIN. CALL LIGHT WITHIN REACH. WILL HAVE DIALYSIS TONIGHT. BED IN LOWEST AND LOCKED POSITION. WITH RIGHT ARM AV SHUNT, WITH THRILL AND BRUIT SENSATIONS NOTED. HL ON THE LEFT UPPER ARM INTACT.
[2019-09-25 20:00] VITALS: BP 142/78
--- NOTE | 2019-09-25 20:20 | NUR ---
PATIENT IS ON DIALYSIS NOW.
--- NOTE | 2019-09-25 20:20 | NUR ---
PATIENT VERBALIZED THAT HE WANTS THE PRN PAIN MED DILAUDID AFTER THE DIALYSIS.
[2019-09-25] MEDS: HYDROMORPHONE 1 MG/1 ML DISP.SYRIN IV PRN (22:07)
[2019-09-25] MEDS: ONDANSETRON HCL/PF 4 MG/2 ML VIAL IVP PRN (22:20)
[2019-09-26] MEDS: HYDROMORPHONE 1 MG/1 ML DISP.SYRIN IV PRN ×2 (02:08→10:14)
[2019-09-26 04:27] VITALS: BP 120/66
--- NOTE | 2019-09-26 05:31 | NUR ---
MS RN CLOSING NOTES: PATIENT IS RESTING IN BED, A/O X4. NO ACUTE EVENTS OVERNIGHT. VITALS STABLE. MEDICATED WITH DILAUDID IV X2 FOR ABDOMINAL PAIN, EFFECTIVE. HAD ONE EPISODE OF VOMITTING-100ML LAST NIGHT, ZOFRAN 4MG IV GIVEN,EFFECTIVE. POST HEMODIALYSIS WITH 2,700ML OUTPUT. NO BLEEDING NOTED. CALL LIGHT WITHIN REACH. BED IN LOWEST AND LOCKED POSITION.
[2019-09-26 06:25] LABS: BASOPHILS % (AUTO) 0.6 % (0.0-2.0); EOSINOPHILS % (AUTO) 0.9 % (0.0-6.0); HEMATOCRIT 27 % (39-51); HEMOGLOBIN 8.8 g/dL (13.5-17.5); LYMPHOCYTES # (AUTO) 0.6 /CMM (0.8-4.8); LYMPHOCYTES % (AUTO) 14.1 % (20.0-44.0); MEAN CORPUSCULAR HGB CONC 33 g/dl (31.0-36.0); MEAN CORPUSCULAR VOLUME 93 fL (80-96); MONOCYTES # (AUTO) 0.5 /CMM (0.1-1.30); MONOCYTES % (AUTO) 10.3 % (2.0-12.0); NEUTROPHILS # (AUTO) 3.3 /CMM (1.8-8.9); NEUTROPHILS % (AUTO) 74.1 % (43.0-81.0); PLATELET COUNT (AUTO) 100 /CMM (150-450); RED BLOOD CELL COUNT(AUTO) 2.87 MIL/uL (4.5-6.0); WHITE BLOOD COUNT (AUTO) 4.4 K/uL (4.3-11.0)
[2019-09-26 06:39] LABS: ALBUMIN 3.2 g/dL (3.4-5.0); BILIRUBIN,TOTAL 0.3 mg/dL (0.2-1.0); MAGNESIUM 2.1 mg/dL (1.8-2.4); PHOSPHORUS 5.5 mg/dL (2.5-4.9); POTASSIUM 4.6 mmol/L (3.5-5.1); TOTAL PROTEIN, SERUM 8.1 g/dL (6.4-8.2)
[2019-09-26 06:42] LABS: CREATININE 10.9 mg/dL (0.6-1.3)
[2019-09-26 08:00] VITALS: BP 124/68
[2019-09-26] MEDS: SEVELAMER CARBONATE 800 MG TABLET PO SCH ×2 (08:24→12:27)
[2019-09-26] MEDS: CALCIUM CARBONATE 500 MG TAB.CHEW PO SCH ×2 (08:24→12:42)
[2019-09-26] MEDS: AMIODARONE HCL 200 MG TABLET PO SCH (08:25)
[2019-09-26] MEDS: CHOLECALCIFEROL 1,000 UNIT TABLET (VIT D3) PO SCH (08:25)
[2019-09-26] MEDS: METOPROLOL TARTRATE 50 MG TABLET PO SCH (08:25)
[2019-09-26] MEDS: VIT B CMPLX 3/FA/VIT C/BIOTIN 1 TAB TABLET PO SCH (08:25)
[2019-09-26] MEDS: DOCUSATE SODIUM 100 MG CAPSULE PO SCH (08:26)
[2019-09-26] MEDS: CLONIDINE HCL 0.1 MG TABLET PO SCH ×2 (08:26→12:29)
[2019-09-26] MEDS: BENAZEPRIL HCL 20 MG TABLET PO SCH (08:27)
[2019-09-26] MEDS: CALCIUM ACETATE 667 MG TABLET PO SCH ×2 (08:27→12:27)
[2019-09-26] MEDS: hydrALAZINE HCL 50 MG TABLET PO SCH ×2 (08:28→12:27)
[2019-09-26] MEDS: ELIQUIS 2.5 MG PO SCH (08:39)
[2019-09-26] MEDS: diphenhydrAMINE HCL 50 MG/ML VIAL IV PRN (08:47)
[2019-09-26] MEDS: CALCITRIOL 0.25 MCG CAPSULE PO SCH (09:00)
[2019-09-26] MEDS ORDERED: SEVE800T8 PO (09:41)
[2019-09-26] MEDS ORDERED: ONDA4TAB5 PO (09:43)
[2019-09-26] MEDS ORDERED: OXYC-128 PO (09:43)
--- NOTE | 2019-09-26 10:16 | NUR ---
alert, oriented, appropriate, seen by WATER RESOURCE PROJECT MANAGER, Akbar, claimed he is doing fine, and getting ready for discharge. Per WATER RESOURCE PROJECT MANAGER, " late discharge this afternoon, patient expected to give us the pharmacy number for pain meds when ready to go. just now c/o of abdominal pain, 02/24. One mg DILAUDID ivp given right now (11:15am)
[2019-09-26 12:29] VITALS: BP 126/68
--- NOTE | 2019-09-26 12:42 | NUR ---
Dilaudid one mg ivp given earlier, at 1015am, appeared to relieved the abdominal pain, asleep throughout the shift. all discharge paper given to the patient, got his 1300 meds, and own meds. ROCALTROL not available at this time to give, despite the fact, diploma pharmacy technician made aware x 2. awaiting ride, so he can go home.
== END 2019-09-26 13:30 | disposition home or self-care (01) | DRG 438 ==
LOC: ER 15:52 → MEDSG1 18:15
PROVIDERS: ADMIT Nurse Practitioner Acute Care; ATTEND Nurse Practitioner Acute Care
PROC: 5A1D70Z Performance of Urinary Filtration, Intermittent, Less than 6 Hours Per Day (ICD-10-PCS; principal; 2019-09-25)
DX: K85.90 Acute pancreatitis without necrosis or infection, unspecified (principal); N18.6 End stage renal disease; I50.32 Chronic diastolic (congestive) heart failure; I13.2 Hypertensive heart and chronic kidney disease with heart failure and with stage 5 chronic kidney disease, or end stage renal disease; Z94.0 Kidney transplant status; I25.10 Atherosclerotic heart disease of native coronary artery without angina pectoris; I48.91 Unspecified atrial fibrillation; Z79.01 Long term (current) use of anticoagulants; Z99.2 Dependence on renal dialysis; F41.9 Anxiety disorder, unspecified; F32.9 Major depressive disorder, single episode, unspecified; F17.210 Nicotine dependence, cigarettes, uncomplicated; D63.1 Anemia in chronic kidney disease; D72.819 Decreased white blood cell count, unspecified; Q78.9 Osteochondrodysplasia, unspecified
CPT/HCPCS: 36415; 71045-TC; 80048-TC; 80053-TC; 80061-TC; 80076-TC; 83690-TC; 83735-TC; 84100-TC; 84484-TC; 85025-TC; 86706; 87081-TC; 87340; 90935-TC; G0378; J0885; J1170; J1200; J2405; J7030; Q0163

== ENCOUNTER 2022-03-29 17:27 | Inpatient (IN) | payer MEDICARE, OTHER ==
[~2022-03-29] VITALS: Ht 180.3 cm; Wt 64.0 kg
[~2022-03-29 17:27] MED LIST changes: +ALPR0.25 PO; +AMIO200T5 PO; +APIX2.5T PO; +BENA20TA9 PO; +BISA-79 PO; +CALC0.253 PO; +CALC500T13 PO; +CALC667T2 PO; +CHOL200026 PO; +CLON0.1T PO; -DIPH1TAB PO; +DIPH1TAB28 PO; -DIPH25CA51 PO; +DIPH50CA37 PO; +DOCU-141 PO; -EFAV600T PO; +EFAV600T8 PO; +FOLI0.8T23 PO; +HYDR-4077 PO; +HYDR-4354 PO; +LAMI1TAB PO; -LAMI300T PO; +LORA-259 PO; -LORA1TAB PO; +METO50TA16 PO; +ONDA4TAB5 PO; +OXYC-128 PO; -TENO300T5 PO; +ZOLP5TAB2 PO
--- NOTE | 2022-03-29 17:37 | NUR ---
BIBS C/O PAIN IN RIGHT SHOULDER WHERE DIALYSIS CATHETER IS ON,CAN'T WALK DUE TO BILATERAL LEG PAIN, LAST DIALYSIS 03/27/2022. TO ER BED 6, HOOKED TO MONITOR, CHANGED TO HOSP GOWN, WARM BLANKET PROVIDED. PATIENT AAO x 4. BREATHING EVEN AND UNLABORED. AWAITING MD VALLE
--- NOTE | 2022-03-29 18:29 | NUR ---
DR STERLING AT BEDSIDE
[2022-03-29] MEDS ORDERED: HYDROMORPHONE 1 MG/1 ML DISP.SYRIN IV ONE (19:00)
[2022-03-29 20:09] LABS: BASOPHILS % (AUTO) 0.5 % (0.0-2.0); EOSINOPHILS % (AUTO) 1.3 % (0.0-6.0); HEMATOCRIT 32 % (39-51); HEMOGLOBIN 10.2 g/dL (13.5-17.5); LYMPHOCYTES # (AUTO) 0.8 K/uL (0.8-4.8); LYMPHOCYTES % (AUTO) 16.7 % (20.0-44.0); MEAN CORPUSCULAR HGB CONC 32 g/dl (31.0-36.0); MEAN CORPUSCULAR VOLUME 89 fL (80-96); MONOCYTES # (AUTO) 0.4 K/uL (0.1-1.30); MONOCYTES % (AUTO) 8.5 % (2.0-12.0); NEUTROPHILS # (AUTO) 3.5 K/uL (1.8-8.9); PLATELET COUNT (AUTO) 148 K/uL (150-450); WHITE BLOOD COUNT (AUTO) 4.7 K/uL (4.3-11.0)
[2022-03-29 20:20] LABS: CALCIUM, SERUM 8.9 mg/dL (8.5-10.1)
[2022-03-29 20:22] LABS: POTASSIUM 9.3 mmol/L (3.5-5.1)
[2022-03-29 20:23] LABS: CREATININE 10.4 mg/dL (0.6-1.3)
--- NOTE | 2022-03-29 20:38 | NUR ---
COVID ANTIGEN SWAB COLLECTED AND SENT TO LAB
[2022-03-29] MEDS ORDERED: HYDROMORPHONE 1 MG/1 ML DISP.SYRIN ONE (20:40)
--- NOTE | 2022-03-29 20:44 | NUR ---
IV LINE ESTABLISHED LUPPER ARM 20G
[2022-03-29] MEDS ORDERED: Calcium Gluconate 0.465 MEQ/ML VIAL IV ONE (21:58)
[2022-03-29] MEDS ORDERED: Calcium Gluconate 1GM/10ML 9.3 MEQ in IV NS 0.9% 100 ML IV ONE (22:00)
[2022-03-29] MEDS ORDERED: SODIUM POLYSTYRENE SULFONATE 15 G/60 ML BOTTLE PO ONE (22:00)
[2022-03-29] MEDS ORDERED: DEXTROSE 50%-WATER 50 ML DISP.SYRIN IV ONE (22:00)
[2022-03-29] MEDS ORDERED: INSULIN REGULAR, HUMAN 100 UNIT/ML 10 ML VIAL IV ONE (22:00)
[2022-03-29] MEDS ORDERED: SODIUM BICARBONATE SYR 50 MEQ/50 ML DISP.SYRIN IV ONE (22:00)
--- NOTE | 2022-03-29 22:10 | NUR ---
RADIOLOGICAL METALLURGIST AT PT'S BEDSIDE
[2022-03-29] MEDS ORDERED: diphenhydrAMINE HCL 25 MG CAPSULE PO ONE (23:00)
[2022-03-29] MEDS ORDERED: diphenhydrAMINE HCL 50 MG CAPSULE ONE (23:05)
--- NOTE | 2022-03-29 23:05 | NUR ---
DR. ALEXSANDER SNYDER [facility] PH[facility]
--- NOTE | 2022-03-29 23:17 | NUR ---
DR STERLING SPEAKING WITH DR REYES FOR PEER TO PEER NEPHRO
--- NOTE | 2022-03-29 23:17 | NUR ---
DR REYES [phone]
[2022-03-29 23:28] LABS: CALCIUM, SERUM 8.8 mg/dL (8.5-10.1)
[2022-03-29] MEDS ORDERED: ACETAMINOPHEN 325 MG TABLET PO PRN (23:30)
[2022-03-29 23:39] LABS: CREATININE 11.8 mg/dL (0.6-1.3)
--- NOTE | 2022-03-29 23:39 | NUR ---
CREA 11.82
[2022-03-29 23:53] LABS: POTASSIUM 4.8 mmol/L (3.5-5.1)
--- NOTE | 2022-03-30 01:40 | NUR ---
BED 116-1
--- NOTE | 2022-03-30 01:57 | NUR ---
REPORT GIVEN TO MARIE MARR FOR GUSTAVO
--- NOTE | 2022-03-30 02:45 | NUR ---
WELT EDGE ROUNDER NOTE RECEIVED 46Y M PATIENT FROM ER VIA RAHULRBEL ACCOMPANIED BY 2 STAFF. PT IS NOTED TO BE GRIMACING FROM PAIN ON THE R SHOULDER. PT ON RA TOLERATING WELL, WITH IV ACCESS ON FRAN #20g NO FLUIDS RUNNING AT THIS TIME, ORIENTED PATIENT TO THE UNIT, VERBALIZED UNDERSTANDING. INITIAL PHYSICAL ASSESSMENT DONE, PICTURES TAKEN AND PLACED ON CHART, PT REFUSED TO TAKE OFF CLOTHES AND BODY CHECKED. V/S TAKEN AND RECORDED, CALL LIGHT WITHIN REACH, BED IN LOWEST AND LOCKED POSITION, INFORMED DENIA JANSEN ABOUT PT PAIN SCALE, SHE THEN ORDERED LIDOCAINE, CARRIED OUT. WILL CONTINUE TO CLOSELY MONITOR PATIENT.
[2022-03-30] MEDS: LIDOCAINE 5% (PATCH) 1 EA PATCH TP SCH (03:26)
[2022-03-30 04:00] VITALS: BP_SYST 123; BP_SYST 93; BP_DIAS 41; BP_DIAS 56
[2022-03-30] MEDS ORDERED: ALPRAZOLAM 0.25 MG TABLET PO PRN (05:30)
[2022-03-30] MEDS: HYDROCODONE/APAP 10/325MG TABLET PO PRN ×3 (06:00→16:51)
--- NOTE | 2022-03-30 06:19 | NUR ---
RN NOTE PT COMPLAINTS OF R SHOULDER PAIN, PRN MEDICATION GIVEN ORDERED, PT REFUSED TO CHANGE CLOTHING TO HOSPITAL GOWN, V/S TAKEN AND RECORDED, WILL CONT TO MONITOR.
[2022-03-30 06:33] LABS: BASOPHILS % (AUTO) 0.5 % (0.0-2.0); EOSINOPHILS % (AUTO) 1.8 % (0.0-6.0); HEMATOCRIT 31 % (39-51); HEMOGLOBIN 10.1 g/dL (13.5-17.5); LYMPHOCYTES # (AUTO) 0.8 K/uL (0.8-4.8); LYMPHOCYTES % (AUTO) 19.8 % (20.0-44.0); MEAN CORPUSCULAR HGB CONC 33 g/dl (31.0-36.0); MEAN CORPUSCULAR VOLUME 87 fL (80-96); MONOCYTES # (AUTO) 0.5 K/uL (0.1-1.30); MONOCYTES % (AUTO) 11.7 % (2.0-12.0); NEUTROPHILS # (AUTO) 2.7 K/uL (1.8-8.9); NEUTROPHILS % (AUTO) 66.2 % (43.0-81.0); PLATELET COUNT (AUTO) 137 K/uL (150-450); RED BLOOD CELL COUNT(AUTO) 3.54 MIL/uL (4.5-6.0); WHITE BLOOD COUNT (AUTO) 4.1 K/uL (4.3-11.0)
--- NOTE | 2022-03-30 06:39 | NUR ---
RN NOTE PATIENT REMAINS IN BED. A/O X4, ON RA TOLERATING WELL, WITH IV ACCESS ON FRAN #20g NO FLUIDS RUNNING AT THIS TIME, WITH R AV FISTULA, V/S TAKEN AND RECORDED, PATIENT IS IN CHRONIC PAIN, MEDS GIVEN MD ORDERED. NO S/SX OF RESPIRATORY DISTRESS AT THIS TIME. CALL LIGHT WITHIN REACH, BED IN LOWEST AND LOCKED POSITION, WILL CONTINUE ENDORSE TO AM SHIFT NURSE.
[2022-03-30 07:03] LABS: CALCIUM, SERUM 8.8 mg/dL (8.5-10.1); PHOSPHORUS 7.4 mg/dL (2.5-4.9); POTASSIUM 5.3 mmol/L (3.5-5.1)
--- NOTE | 2022-03-30 07:20 | NUR ---
RN OPENING NOTES RECEIVED PATIENT IN BED, AWAKE ALERT/ORIENTED X4, ON RA TOLERATING WELL. BREATHING EVEN AND UNLABORED. NO SOB OR ANY RESPIRATORY DISTRESS NOTED AT THE TIME. WITH IV ACCESS ON FRAN #20G NO FLUIDS RUNNING AT THIS TIME, WITH R AV FISTULA. NOTED WITH FACIAL GRIMACING, PATIENT STATES OF PAIN, PAIN MEDS RECENTLY GIVEN BY NIGHTSHIFT NURSE. ALL SAFETY MEASURES IN PLACE. CALL LIGHT WITHIN REACH, BED IN LOWEST AND LOCKED POSITION WITH SIDE RAILS UP. WILL CONTINUE TO MONITOR AND REASSESS FOR ANY CHANGES DURING SHIFT.
--- NOTE | 2022-03-30 07:34 | NUR ---
WOUND CARE CONSULT: RECEIVED CONSULT FOR "WOUNDS", HOWEVER NO OPEN WOUNDS NOTED. PT PRESENTS WITH FISTULA TO RT ARM WHICH HAS SOME DISCOLORATION AND SCARRING. NO DRAINAGE OR TENDERNESS NOTED. DEFER TO NEPHROLOGY FOR FISTULA SITE. PT ABLE TO ASSIST WITH TURNING AND REPOSITIONING IN BED AND IS CONTINENT. CURRENT JULIA SCORE IS 16. DISCUSSED SKIN PROTECTION WITH NURSING STAFF. WILL SEE PRN.
[2022-03-30 07:44] LABS: CREATININE 11.9 mg/dL (0.6-1.3)
[2022-03-30 08:00] VITALS: BP 97/54
[2022-03-30] MEDS: SEVELAMER CARBONATE 800 MG TABLET PO SCH ×3 (08:29→17:31)
[2022-03-30] MEDS: CALCIUM CARBONATE 500 MG TAB.CHEW PO SCH ×3 (08:29→17:31)
[2022-03-30] MEDS: DOCUSATE SODIUM 100 MG CAPSULE PO SCH ×2 (08:29→21:06)
[2022-03-30] MEDS: CHOLECALCIFEROL 1,000 UNIT TABLET (VIT D3) PO SCH (08:29)
[2022-03-30] MEDS: CALCITRIOL 0.25 MCG CAPSULE PO SCH (08:29)
[2022-03-30] MEDS: VIT B CMPLX 3/FA/VIT C/BIOTIN 1 TAB TABLET PO SCH (08:29)
[2022-03-30] MEDS: APIXABAN 2.5 MG TABLET PO SCH ×2 (08:31→16:51)
[2022-03-30] MEDS: AMIODARONE HCL 200 MG TABLET PO SCH ×2 (08:32→16:52)
[2022-03-30] MEDS: CLONIDINE HCL 0.1 MG TABLET PO SCH ×3 (08:32→16:52)
[2022-03-30] MEDS: EFAVIRENZ 600 MG TABLET PO SCH (08:32)
[2022-03-30] MEDS: LAMIVUDINE/ZIDOVUDINE 150-300 1 TAB TABLET PO SCH ×2 (10:24→16:51)
[2022-03-30 12:00] VITALS: BP 91/52
[2022-03-30 16:00] VITALS: BP 98/62
--- NOTE | 2022-03-30 18:45 | NUR ---
RN CLOSING NOTES NO SIGNIFICANT CHANGES IN PATIENT CONDITION THROUGHOUT SHIFT. PATIENT IN BED, RESTING, ALERT/ORIENTED X4, ON RA TOLERATING WELL. BREATHING EVEN AND UNLABORED. NO SOB OR ANY RESPIRATORY DISTRESS NOTED AT THE TIME. WITH IV ACCESS ON FRAN #20G NO FLUIDS RUNNING AT THIS TIME, WITH R AV FISTULA. ALL DUE MEDS GIVEN ORDERED. KEPT PATIENT CLEAN DRY AND COMFORTABLE. ALL NEEDS ANTICIPATED. ALL SAFETY MEASURES IN PLACE. CALL LIGHT WITHIN REACH, BED IN LOWEST AND LOCKED POSITION WITH SIDE RAILS UP. WILL ENDORSE TO CHIROPRACTIC DOCTOR NURSE FOR CONTINUITY OF CARE.
--- NOTE | 2022-03-30 19:10 | NUR ---
RN NOTES RECEIVED REPORT FROM MORNING RN. PATIENT A/O X 4 ABLE TO MAKE NEEDS KNOWN. ON ROOM AIR SATING 95% NO SOB NO DISTRESS NOTED AT THIS TIME. WITH IV ACCESS AT L UA # 20 PATENT FLUSHES WELL. WITH R AV FISTULA NO BLEEDING NOTED + THRILL + BRUIT NOTED. VITAL SIGNS TAKEN AND RECORDED. ALL SAFETY MEASURES IN PLACE AT ALL TIMES. HOB ELEVATED. CALL LIGHT WITHIN REACH. WILL CLOSELY MONITOR. PATIENT REFUSED DIALYSIS PER MORNING RN.
[2022-03-30 20:00] VITALS: BP 107/51
--- NOTE | 2022-03-30 20:05 | NUR ---
2003 Patient with c/o severe right shoulder/arm pain 10. PLATE STACKER HAND Angelina made aware with order to give Morphine 2mg IVP as needed every 4 hours. Noted on chart patient allergic to Morphine, patient stated he is not allergic to Morphine, PLATE STACKER HAND Angelina made aware and said ok to give. Pharmacy notified of new order.
[2022-03-30] MEDS ORDERED: MORPHINE SULFATE INJ 4 MG/ML DISP.SYRIN IVP PRN (20:30)
[2022-03-30] MEDS: MORPHINE SULFATE INJ 4 MG/ML DISP.SYRIN IVP PRN (21:08)
[2022-03-30] MEDS: LORAZEPAM 1 MG TABLET PO SCH (22:07)
[2022-03-31] VITALS (7 sets, daily range): BP systolic 90–126; BP diastolic 24–74
[2022-03-31] MEDS: HYDROCODONE/APAP 10/325MG TABLET PO PRN ×3 (01:13→14:22)
[2022-03-31] MEDS: LIDOCAINE 5% (PATCH) 1 EA PATCH TP SCH (03:50)
--- NOTE | 2022-03-31 06:47 | NUR ---
RN NOTES PATIENT REMAINS STABLE. STILL WITH PAIN AT R SHOULDER PRN PAIN MEDICATION GIVEN ROUND THE CLOCK PER PATIENT REQUEST. WITH IV ACCESS AT L UA #20 PATENT FLUSHES WELL. R UA AV FISTULA + BRUIT + THRILL. PATIENT REFUSED DIALYSIS SUNDAY. ALL SAFETY MEASURES IN PLACE AT ALL TIMES. HOB ELEVATED. CALL LIGHT WITHIN REACH. FREQUENT VISUAL MONITORING RENDERED. WILL ENDORSED TO MORNING NURSE FOR GUSTAVO
[2022-03-31 07:21] LABS: BASOPHILS % (AUTO) 0.4 % (0.0-2.0); EOSINOPHILS % (AUTO) 1.8 % (0.0-6.0); HEMATOCRIT 32 % (39-51); HEMOGLOBIN 10.4 g/dL (13.5-17.5); LYMPHOCYTES # (AUTO) 0.7 K/uL (0.8-4.8); LYMPHOCYTES % (AUTO) 15.6 % (20.0-44.0); MEAN CORPUSCULAR HGB CONC 32 g/dl (31.0-36.0); MEAN CORPUSCULAR VOLUME 89 fL (80-96); MONOCYTES # (AUTO) 0.5 K/uL (0.1-1.30); MONOCYTES % (AUTO) 9.8 % (2.0-12.0); NEUTROPHILS # (AUTO) 3.4 K/uL (1.8-8.9); NEUTROPHILS % (AUTO) 72.4 % (43.0-81.0); PLATELET COUNT (AUTO) 154 K/uL (150-450); RED BLOOD CELL COUNT(AUTO) 3.64 MIL/uL (4.5-6.0); WHITE BLOOD COUNT (AUTO) 4.7 K/uL (4.3-11.0)
--- NOTE | 2022-03-31 07:34 | NUR ---
RN OPENING NOTES RECEIVED PT IN BED, PT IS A/O X 4. PT ON RA SATING AT 96%. IV ACCESS NOTED AT FRAN 20G, AND RIGHT AV FISTULA. NO FLUIDS RUNNING AT THIS TIME. ALL SAFETY MEASURES IN PLACE, WILL CONT. TO MONITOR THROUGHOUT SHIFT.
[2022-03-31 08:06] LABS: ALANINE AMINOTRANSFERASE < 6 U/L (12-78); ALBUMIN 2.9 g/dL (3.4-5.0); ALKALINE PHOSPHATASE 104 U/L (46-116); ASPARTATE AMINOTRANSFERASE 8 U/L (15-37); BILIRUBIN,TOTAL 0.3 mg/dL (0.2-1.0); CALCIUM, SERUM 8.4 mg/dL (8.5-10.1); CARBON DIOXIDE 33 mmol/L (21-32); GLUCOSE 85 mg/dL (74-106); MAGNESIUM 2.9 mg/dL (1.8-2.4); PHOSPHORUS 7.7 mg/dL (2.5-4.9); TOTAL PROTEIN, SERUM 8.3 g/dL (6.4-8.2); UREA NITROGEN, BLOOD 54 mg/dL (7-18)
[2022-03-31] MEDS: VIT B CMPLX 3/FA/VIT C/BIOTIN 1 TAB TABLET PO SCH (08:13)
[2022-03-31] MEDS: SEVELAMER CARBONATE 800 MG TABLET PO SCH ×3 (08:13→17:52)
[2022-03-31] MEDS: CALCIUM CARBONATE 500 MG TAB.CHEW PO SCH ×3 (08:13→17:52)
[2022-03-31] MEDS: CHOLECALCIFEROL 1,000 UNIT TABLET (VIT D3) PO SCH (08:13)
[2022-03-31] MEDS: AMIODARONE HCL 200 MG TABLET PO SCH ×2 (08:14→16:24)
[2022-03-31] MEDS: DOCUSATE SODIUM 100 MG CAPSULE PO SCH ×2 (08:14→21:37)
[2022-03-31] MEDS: CLONIDINE HCL 0.1 MG TABLET PO SCH ×3 (08:14→16:24)
[2022-03-31] MEDS: CALCITRIOL 0.25 MCG CAPSULE PO SCH (08:14)
[2022-03-31] MEDS: MORPHINE SULFATE INJ 4 MG/ML DISP.SYRIN IVP PRN ×4 (08:15→22:11)
[2022-03-31] MEDS: APIXABAN 2.5 MG TABLET PO SCH ×2 (08:15→16:23)
[2022-03-31] MEDS: EFAVIRENZ 600 MG TABLET PO SCH (08:18)
[2022-03-31] MEDS: LAMIVUDINE/ZIDOVUDINE 150-300 1 TAB TABLET PO SCH ×2 (08:18→16:25)
[2022-03-31 08:19] LABS: CHLORIDE 95 mmol/L (98-107); POTASSIUM 6.1 mmol/L (3.5-5.1); SODIUM SERUM 135 mmol/L (136-145)
--- NOTE | 2022-03-31 12:51 | NUR ---
Podiatry consult for Dr. Hadley ordered. Pt complaining of foot pain switching from left to right.
[2022-03-31] MEDS ORDERED: ALBUMIN 25% 25 GM in PREMIX 1 EA IV STA (19:05)
--- NOTE | 2022-03-31 19:15 | NUR ---
RN opening notes Received Pt from morning nurse. Pt is having dialysis in the room with TEJINDER Montilla ( dialysis nurse). Pt is sitting in bed comfortably watching TV. Pt is alert and orientedX4. On room air. no SOB. No S/S of distress noted. ANNABELLA av fistula is clean, intact. FRAN# 20 is clean, intact and SL. Tele monitor showed SB hr at 50. Safety precautions is maintained. Bed at low position, brakes locked, side rails upX2, hob elevated, and call light is with reach. Will continue to monitor.
[2022-03-31] MEDS: diphenhydrAMINE HCL 50 MG/ML VIAL IV PRN (19:19)
--- NOTE | 2022-03-31 19:36 | NUR ---
RN CLOSING NOTES PT IN BED. AO X 4. PT ON RA SATING AT 96%. IV ACCESS LEFT UPPER ARM 20 G. RIGHT AV FISTULA. NO FLUIDS RUNNING AT THIS TIME. CURRENTLY HAVING HIS HEMODIALYSIS. WILL ENDORSE TO NEXT SHIFT NURSE
--- NOTE | 2022-03-31 21:00 | NUR ---
RN notes Asked Pt regarding Pt's allergic to morphine. Pt stated " No. I don't have any allergic to morphine. Only to eggs."
[2022-03-31] MEDS: LORAZEPAM 1 MG TABLET PO SCH (21:37)
--- NOTE | 2022-03-31 21:38 | NUR ---
RN notes HD is done. HD nurse is TEJINDER Montilla at the bedside. Pt tolerated activity well. 2 L output. BP 100/70. HR 51. O2 sat is 100%Will continue to monitor.
--- NOTE | 2022-03-31 22:11 | NUR ---
RN notes Pt is complaining of R shoulder and arm pain 10/10 on pain scale. Pt requesting pain meds. admisnistered morphine 2 mg/iv push/prn as ordered for pain. Safety precautions is maintained. will continue to monitor.
[2022-04-01] VITALS: BP 98/46
[2022-04-01] MEDS: MORPHINE SULFATE INJ 4 MG/ML DISP.SYRIN IVP PRN ×2 (02:43→12:29)
--- NOTE | 2022-04-01 03:47 | NUR ---
RN notes Pt is complaining of acid reflux and requesting meds. Informed and notified Dr. Alfaro. Also informed MD that Pt has routine schedule for tums 500mg/tid. MD ordered protonix 40 mg/po/daily. Ordered carry out.
[2022-04-01] MEDS: PANTOPRAZOLE 40 MG TABLET.DR PO SCH (03:55)
[2022-04-01 04:00] VITALS: BP 98/55
[2022-04-01] MEDS: LIDOCAINE 5% (PATCH) 1 EA PATCH TP SCH (04:04)
--- NOTE | 2022-04-01 06:38 | NUR ---
RN closing notes Pt is resting in bed comfortably. Pt is alert and orientedX4. On room air. no SOB. No S/S of distress noted. ANNABELLA av fistula is clean, intact. FRAN# 20 is clean, intact and SL. Tele monitor showed SB hr at 55. Routine meds were given as ordered including pain meds. Kept Pt clean, dry and comfortable. Safety precautions is maintained. Bed at low position, brakes locked, side rails upX2, hob elevated, and call light is with reach. Will endorse to am nurse for GUSTAVO.
[2022-04-01 07:04] LABS: BASOPHILS % (AUTO) 0.4 % (0.0-2.0); EOSINOPHILS % (AUTO) 1.1 % (0.0-6.0); HEMATOCRIT 29 % (39-51); HEMOGLOBIN 9.2 g/dL (13.5-17.5); LYMPHOCYTES # (AUTO) 0.6 K/uL (0.8-4.8); LYMPHOCYTES % (AUTO) 13.3 % (20.0-44.0); MEAN CORPUSCULAR HGB CONC 32 g/dl (31.0-36.0); MEAN CORPUSCULAR VOLUME 89 fL (80-96); MONOCYTES # (AUTO) 0.5 K/uL (0.1-1.30); MONOCYTES % (AUTO) 9.3 % (2.0-12.0); NEUTROPHILS # (AUTO) 3.7 K/uL (1.8-8.9); NEUTROPHILS % (AUTO) 75.9 % (43.0-81.0); PLATELET COUNT (AUTO) 135 K/uL (150-450); RED BLOOD CELL COUNT(AUTO) 3.21 MIL/uL (4.5-6.0); WHITE BLOOD COUNT (AUTO) 4.9 K/uL (4.3-11.0)
[2022-04-01 07:12] LABS: ALBUMIN 2.8 g/dL (3.4-5.0); ALKALINE PHOSPHATASE 90 U/L (46-116); ASPARTATE AMINOTRANSFERASE 9 U/L (15-37); BILIRUBIN,TOTAL 0.3 mg/dL (0.2-1.0); CALCIUM, SERUM 8.3 mg/dL (8.5-10.1); CARBON DIOXIDE 34 mmol/L (21-32); CHLORIDE 96 mmol/L (98-107); GLUCOSE 97 mg/dL (74-106); MAGNESIUM 2.7 mg/dL (1.8-2.4); PHOSPHORUS 7.5 mg/dL (2.5-4.9); POTASSIUM 5.3 mmol/L (3.5-5.1); SODIUM SERUM 135 mmol/L (136-145); TOTAL PROTEIN, SERUM 7.8 g/dL (6.4-8.2); UREA NITROGEN, BLOOD 41 mg/dL (7-18)
--- NOTE | 2022-04-01 07:41 | NUR ---
RN NOTE PT RESTING IN BED. AWAKE ALERT AND RESPONSIVE. IN RA, NOT IN RESPI DISTRESS. R AVF IN PLACE, DRESSING DRY AND INTACT, N BLEEDING NOTED. SAFETY MEASURES FOLLOWED. WILL CONT TO MONITOR.
[2022-04-01 08:00] VITALS: BP 98/55
[2022-04-01 08:11] LABS: ALANINE AMINOTRANSFERASE < 6 U/L (12-78)
[2022-04-01] MEDS: AMIODARONE HCL 200 MG TABLET PO SCH ×2 (08:38→17:00)
[2022-04-01] MEDS: CHOLECALCIFEROL 1,000 UNIT TABLET (VIT D3) PO SCH (08:38)
[2022-04-01] MEDS: SEVELAMER CARBONATE 800 MG TABLET PO SCH ×3 (08:39→18:17)
[2022-04-01] MEDS: VIT B CMPLX 3/FA/VIT C/BIOTIN 1 TAB TABLET PO SCH (08:39)
[2022-04-01] MEDS: DOCUSATE SODIUM 100 MG CAPSULE PO SCH ×2 (08:39→21:26)
[2022-04-01] MEDS: CALCIUM CARBONATE 500 MG TAB.CHEW PO SCH ×3 (08:39→18:17)
[2022-04-01] MEDS: CALCITRIOL 0.25 MCG CAPSULE PO SCH (08:40)
[2022-04-01] MEDS: EFAVIRENZ 600 MG TABLET PO SCH (08:41)
[2022-04-01] MEDS: APIXABAN 2.5 MG TABLET PO SCH ×2 (08:41→18:19)
[2022-04-01] MEDS: CLONIDINE HCL 0.1 MG TABLET PO SCH ×2 (09:00→12:30)
[2022-04-01] MEDS: LAMIVUDINE/ZIDOVUDINE 150-300 1 TAB TABLET PO SCH ×2 (10:44→18:18)
[2022-04-01 12:00] VITALS: BP 101/52
[2022-04-01] MEDS: diphenhydrAMINE HCL 50 MG/ML VIAL IV PRN ×2 (12:58→23:22)
--- NOTE | 2022-04-01 13:30 | NUR ---
pt refused dialysis today, explained the importance of HD treatment and the consequences of not having his treatment, verbalized understanding. Dr Thomas made aware.
[2022-04-01 16:00] VITALS: BP 110/62
--- NOTE | 2022-04-01 18:53 | NUR ---
RN NOTE PT RESTING IN BED. AWAKE ALERT AND RESPONSIVE. IN RA, NOT IN RESPI DISTRESS. R AVF IN PLACE, DRESSING DRY AND INTACT, N BLEEDING NOTED. SAFETY MEASURES FOLLOWED. WILL CONT TO MONITOR. ALL DUE MEDS GIVEN, PT PAIN MGT WITH GOOD EFFECT. DUE MEDS GIVEN. AM/PM CARE DONE. SAFETY MEASURES FOLLOWED. WILL CONT TO MONITOR.
--- NOTE | 2022-04-01 19:30 | NUR ---
RN NOTES RECEIVED PT FOR CONTINUITY OF CARE. PATIENT A/OX4 IN NO S/SX OF ACUTE DISTRESS AT THIS TIME; CURRENTLY ON 2L OF 02 VIA NC; WITH 02 SAT >95% AT THIS TIME.WITH IV ACCESS PATENT, INTACT AND FLUSHING WELL. ENSURE SAFETY MEASURES WITHIN THE SHIFT. PATIENT BED ALARM IS ON. HEAD OF BED ELEVATED. BED IS LOCKED, IN LOWEST POSITION AND SIDE RAILS UP. CALL LIGHT WITHIN REACH OF THE PATIENT. WILL CONTINUE TO MONITOR AND REASSESS FOR ANY CHANGES AND WILL CARRY OUT ANY ONGOING AND ACTIVE MD ORDER.
[2022-04-01 20:00] VITALS: BP 117/60
[2022-04-01] MEDS: HYDROMORPHONE 1 MG/1 ML DISP.SYRIN IV PRN (21:25)
[2022-04-01] MEDS: LORAZEPAM 1 MG TABLET PO SCH (21:26)
[2022-04-02] VITALS: BP 116/66
[2022-04-02] MEDS: HYDROMORPHONE 1 MG/1 ML DISP.SYRIN IV PRN ×5 (01:54→21:21)
[2022-04-02] MEDS: LIDOCAINE 5% (PATCH) 1 EA PATCH TP SCH (02:52)
[2022-04-02 04:00] VITALS: BP 105/60
--- NOTE | 2022-04-02 04:00 | NUR ---
RN NOTES PATIENT REMAINED TO BE IN NO SIGNS OF ACUTE RESPIRATORY DISTRESS , SAFE ENVIRONMENT MAINTAINED FOR PT. AM PATIENT CARE ASSISTANCE RENDERED. WILL CONTINUE TO MONITOR AND REASSESS FOR ANY CHANGES THROUGHOUT THE SHIFT.
--- NOTE | 2022-04-02 06:36 | NUR ---
RN CLOSING NOTE: PATIENT REMAINS IN ROOM IN NO SIGNS OF RESPIRATORY DISTRESS, PATIENT STILL ON 2L OF 02 VIA NC;TOLERATING WELL SATURATING @ >95% SP02. SAFETY MEASURES IMPLEMENTED, BED IN LOWEST POSITION, LOCKED, SIDE RAILS UP, CALL LIGHT WITHIN REACH. ALL NEEDS AND ORDERS ADDRESSED DURING THE SHIFT. IV ACCESS MAINTAINED INTACT, SECURED AND FLUSHING WELL. ALL DUE MEDS GIVEN ORDERED & SCHEDULED ; PATIENT TOLERATED WELL. PATIENT KEPT CLEAN AND COMFORTABLE WITHIN THE SHIFT. PT FOR HD TODAY. PATIENT ENDORSED TO INCOMING SHIFT RN WITH STABLE VITAL SIGN AND FOR CONTINUITY OF CARE.
--- NOTE | 2022-04-02 07:20 | NUR ---
RN OPENING NOTE PATIENT RESTING COMFORTABLY IN BED. PATIENT IS ALERT AND ORIENTED X4. PATIENT IS ON 2L O2 VIA NASAL CANNULA.PATIENT COMPLAINING OF ITCHING. WILL ADMINISTER BENADRYL. OXYGEN SATURATION ABOVE 95%. PATIENT SKIN INTACT. ALL SAFETY MEASURES IN PLACE. BED LOCKED IN LOWEST POSITION. CALL LIGHT WITHIN REACH. BEDSIDE TABLE NEXT TO PATIENT.WILL CONTINUE TO ASSESS THROUGHOUT SHIFT.
[2022-04-02] MEDS: diphenhydrAMINE HCL 50 MG/ML VIAL IV PRN ×3 (07:42→21:21)
[2022-04-02] MEDS: CALCIUM CARBONATE 500 MG TAB.CHEW PO SCH ×3 (07:42→17:51)
[2022-04-02] MEDS: SEVELAMER CARBONATE 800 MG TABLET PO SCH ×6 (07:46→18:00)
[2022-04-02 08:00] VITALS: BP 111/61
[2022-04-02] MEDS: DOCUSATE SODIUM 100 MG CAPSULE PO SCH ×2 (09:00→20:36)
[2022-04-02] MEDS: AMIODARONE HCL 200 MG TABLET PO SCH ×3 (09:00→17:00)
[2022-04-02] MEDS: CALCITRIOL 0.25 MCG CAPSULE PO SCH (09:31)
[2022-04-02] MEDS: LAMIVUDINE/ZIDOVUDINE 150-300 1 TAB TABLET PO SCH ×2 (09:32→16:18)
[2022-04-02] MEDS: EFAVIRENZ 600 MG TABLET PO SCH (09:32)
[2022-04-02] MEDS: CHOLECALCIFEROL 1,000 UNIT TABLET (VIT D3) PO SCH (09:32)
[2022-04-02] MEDS: VIT B CMPLX 3/FA/VIT C/BIOTIN 1 TAB TABLET PO SCH (09:32)
[2022-04-02] MEDS: PANTOPRAZOLE 40 MG TABLET.DR PO SCH (09:32)
[2022-04-02] MEDS: APIXABAN 2.5 MG TABLET PO SCH ×2 (09:39→16:37)
--- NOTE | 2022-04-02 10:27 | NUR ---
supervisor television chassis repair note pt complaining of indigestion. notified . prescribed Maalox.
[2022-04-02] MEDS ORDERED: MAG HYDROX/AL HYDROX/SIMETH 30 ML UDC PO PRN (10:30)
[2022-04-02] MEDS ORDERED: SODIUM POLYSTYRENE SULFONATE 15 G/60 ML BOTTLE PO SCH (11:30)
[2022-04-02] MEDS: SODIUM POLYSTYRENE SULFONATE 15 G/60 ML BOTTLE PO SCH ×4 (11:52→20:35)
--- NOTE | 2022-04-02 12:01 | NUR ---
rn note hold Kayexalate due to dialysis today
--- NOTE | 2022-04-02 14:40 | NUR ---
RN NOTE PATIENT REFUSED DIALYSIS TODAY. PATIENT WANTS DIALYSIS TOMORROW DUE TO ARM PAIN. NOTIFIED DR. SCHWARZ AND MADE AWARE.
--- NOTE | 2022-04-02 17:05 | NUR ---
rn note held amiodarone due to HR 60
--- NOTE | 2022-04-02 18:10 | NUR ---
rn note patient complaining of stomach indigestion. patient throwing up. MD notified. will follow up
--- NOTE | 2022-04-02 18:17 | NUR ---
rn note Patient complaining of stomach indigestion and burning like acid reflux. Dr. Chevy Butts ordered Zofran prn q6 hours and Pepcid.will followup
[2022-04-02] MEDS ORDERED: ONDANSETRON HCL/PF 4 MG/2 ML VIAL IV PRN (18:20)
--- NOTE | 2022-04-02 18:49 | NUR ---
telecommunications linesworker note patient refused Sevelamer after opening medication. wasted in med room pharmaceutical waste container. charge nurse aware
--- NOTE | 2022-04-02 19:00 | NUR ---
MS RN closing note PATIENT IN BED.PATIENT IS ALERT AND ORIENTED X4. PATIENT IS ON 2-4 L 02 NASAL CANNULA. ABOVE 95% 02 SATURATING WELL. PATIENT REFUSED DIALYSIS TODAY DUE TO RIGHT SHOULDER PAIN. SAYS OK WITH DIALYSIS FOR TOMORROW. PATIENT HAS MIDLINE ON LEFT UPPER ARM MIDLINE. MIDLINE PATENT AND FLUSHING WELL.PATIENT HAS SCABS NEAR RIGHT HD ACCESS. PATIENT SAYS DILAUDID HELPS WITH PAIN. CLOSE TO END OF SHIFT, PATIENT STARTED COMPLAINING OF INDIGESTION,ACID REFLUX AND BURNING LIKE FEELING IN STOMACH. GAVE TUMS. NOTIFIED MD ON ORDERING ZOFRAN AND PEPCID. PATIENT REPORTS FEELING BETTER NOW. ALL SAFETY MEASURES IN PLACE. BED LOCKED IN LOWEST POSITION. CALL LIGHT WITHIN REACH. BEDSIDE TABLE NEXT TO PATIENT.
--- NOTE | 2022-04-02 19:35 | NUR ---
MS RN OPENING NOTES RECEIVED PATIENT IN BED, AWAKE ALERT/ORIENTED X4, ON O2 VIA NC AT 2LPM, TOLERATING WELL. BREATHING EVEN AND UNLABORED. NO SOB OR ANY RESPIRATORY DISTRESS NOTED AT THE TIME. WITH IV ACCESS ON FRAN #20G MIDLINE NO FLUIDS RUNNING AT THIS TIME, WITH R AV FISTULA. ALL SAFETY MEASURES IN PLACE. CALL LIGHT WITHIN REACH, BED IN LOWEST AND LOCKED POSITION WITH SIDE RAILS UP. WILL CONTINUE TO MONITOR THROUGHOUT THE SHIFT.
--- NOTE | 2022-04-02 19:47 | NUR ---
RT NOTE PT IS CURRENTLY ON 2LPM NC. SAT 98%. NO RESP DISTRESS. ALERT AND ORIENTED. Addendum: 04/02/22 at 1949 by Saúl Calloway RT Amended: Links added.
[2022-04-02] MEDS: FAMOTIDINE (20 MG) 20 MG TABLET PO SCH (20:36)
[2022-04-02 21:00] VITALS: BP 130/83
--- NOTE | 2022-04-02 21:00 | NUR ---
RN NOTE PT REFUSE KAYEXELATE MEDS 30 MG PO, SAYING "I CAN'T TAKE IT, I'M HAVING DIALYSIS TOMORROW ANYWAY, ENCOURAGED ABOUT THE IMPORTANCE AND BENEFITS OF TAKING SCHEDULED MEDS, PATIENT STILL REFUSED AND COMPLAINING OF PAIN, PAIN MEDICATION GIVEN PER MD ORDERED.
[2022-04-02] MEDS: LORAZEPAM 1 MG TABLET PO SCH (21:19)
[2022-04-03] MEDS: LIDOCAINE 5% (PATCH) 1 EA PATCH TP SCH (03:07)
--- NOTE | 2022-04-03 03:40 | NUR ---
RN NOTE PATIENT COMPLAINING OF PAIN THAT RADIATES ON THE R SHOULDER, 9/10 IN PAIN SCALE, PRN MEDS GIVEN ORDERED, WILL CONT TO MONITOR.
[2022-04-03] MEDS: HYDROMORPHONE 1 MG/1 ML DISP.SYRIN IV PRN ×4 (03:47→21:01)
[2022-04-03] MEDS: diphenhydrAMINE HCL 50 MG/ML VIAL IV PRN ×2 (03:48→18:29)
--- NOTE | 2022-04-03 06:44 | NUR ---
MS RN CLOSING NOTES PATIENT IN BED, AWAKE ALERT/ORIENTED X4, ON O2 VIA NC AT 2LPM, TOLERATING WELL. BREATHING EVEN AND UNLABORED. NO SOB OR ANY RESPIRATORY DISTRESS NOTED AT THE TIME. WITH IV ACCESS ON FRAN #20G MIDLINE NO FLUIDS RUNNING AT THIS TIME, WITH R AV FISTULA. ALL SAFETY MEASURES IN PLACE. ALL DUE MEDS GIVEN, KEPT DRY AND CLEAN, PATIENT FOR HD TODAY, CALL LIGHT WITHIN REACH, BED IN LOWEST AND LOCKED POSITION WITH SIDE RAILS UP. WILL ENDORSE TO AM SHIFT NURSE.
--- NOTE | 2022-04-03 07:30 | NUR ---
MS RN OPENING NOTE PATIENT RESTING COMFORTABLY IN BED. PATIENT IS ALERT AND ORIENTED X4. PATIENT IS ON 2L O2 VIA NASAL CANNULA. OXYGEN SATURATION ABOVE 95%. PATIENT SKIN INTACT.LEFT UPPER ARM MIDLINE RIGHT ARM FISTULA.PATENT AND FLUSHING WELL. ALL SAFETY MEASURES IN PLACE. BED LOCKED IN LOWEST POSITION. CALL LIGHT WITHIN REACH. BEDSIDE TABLE NEXT TO PATIENT.WILL CONTINUE TO ASSESS THROUGHOUT SHIFT.DIALYSIS NURSE HERE
[2022-04-03] MEDS: CALCIUM CARBONATE 500 MG TAB.CHEW PO SCH ×3 (08:00→18:29)
[2022-04-03] MEDS ORDERED: ALBUMIN 25% 25 GM in PREMIX 1 EA IV PRN (08:00)
[2022-04-03] MEDS: SEVELAMER CARBONATE 800 MG TABLET PO SCH ×4 (08:00→18:29)
[2022-04-03] MEDS ORDERED: diphenhydrAMINE HCL 50 MG/ML VIAL IV PRN (08:00)
--- NOTE | 2022-04-03 08:13 | NUR ---
ms adame note dialysis nurse here Addendum: 04/03/22 at 0845 by ROBBIE MACIAS RN PATIENT GETTING DIALYSIS
[2022-04-03] MEDS: LAMIVUDINE/ZIDOVUDINE 150-300 1 TAB TABLET PO SCH ×2 (08:16→16:43)
[2022-04-03] MEDS: DOCUSATE SODIUM 100 MG CAPSULE PO SCH ×2 (08:16→21:01)
[2022-04-03] MEDS: VIT B CMPLX 3/FA/VIT C/BIOTIN 1 TAB TABLET PO SCH (08:16)
[2022-04-03] MEDS: AMIODARONE HCL 200 MG TABLET PO SCH ×2 (08:16→17:00)
--- NOTE | 2022-04-03 08:46 | NUR ---
MS RN NOTE HOLD MORNING MEDS DUE TO DIALYSIS
[2022-04-03 09:00] VITALS: BP 107/66
[2022-04-03 09:02] LABS: CALCIUM, SERUM 8.4 mg/dL (8.5-10.1); POTASSIUM 5.4 mmol/L (3.5-5.1)
--- NOTE | 2022-04-03 10:52 | NUR ---
dialysis complete took out 3L per dialysis nurse report
[2022-04-03] MEDS: CALCITRIOL 0.25 MCG CAPSULE PO SCH (11:11)
[2022-04-03] MEDS: PANTOPRAZOLE 40 MG TABLET.DR PO SCH (11:11)
[2022-04-03] MEDS: EFAVIRENZ 600 MG TABLET PO SCH (11:11)
[2022-04-03] MEDS: CHOLECALCIFEROL 1,000 UNIT TABLET (VIT D3) PO SCH (11:12)
[2022-04-03] MEDS: APIXABAN 2.5 MG TABLET PO SCH ×2 (11:16→17:00)
[2022-04-03] MEDS: FAMOTIDINE (20 MG) 20 MG TABLET PO SCH ×2 (11:19→21:01)
[2022-04-03 12:00] VITALS: BP 114/61
--- NOTE | 2022-04-03 12:00 | NUR ---
ms rn note spoke with Dr. Chevy Butts and made aware that patient is having dialysis.last benadryl was given q6 prn was given at 0348.dialysis nurse ordered benadryl one time for hemodialysis. said ok to given benadryl one time dose.
--- NOTE | 2022-04-03 12:04 | NUR ---
spoke with doctor. possible discharge today
[2022-04-03 16:00] VITALS: BP 110/48
--- NOTE | 2022-04-03 17:24 | NUR ---
held eliquis due to bleeding from nose.notifed Dr. ROSARIO will followup
--- NOTE | 2022-04-03 17:47 | NUR ---
followup with Dr. ROSARIO, said ok to continue for now
--- NOTE | 2022-04-03 19:22 | NUR ---
MS RN CLOSING NOTE PATIENT IN BED, AWAKE ALERT/ORIENTED X4, ON O2 VIA NASAL CANNULA AT 2L TOLERATING WELL. . NO SIGNS OF SOB OR ANY RESPIRATORY DISTRESS NOTED AT THIS TIME. PATIENT HAS IV ACCESS ON FRAN #20G MIDLINE.MIDLINE PATENT AND FLUSHING WELL. NO FLUIDS RUNNING AT THIS TIME. PATIENT HAS RIGHT AV FISTULA. PATIENT HAD DIALYSIS TODAY,DIALYSIS NURSE REMOVED 3L. ALL SAFETY MEASURES IN PLACE. PATIENT IS ON RENAL DIET. ALL NEEDS MET. ALL SAFETY MEASURES IN PLACE. CALL LIGHT WITHIN REACH. BEDSIDE TABLE NEXT TO PATIENT.BED LOCKED AND AT LOWEST POSITION
--- NOTE | 2022-04-03 19:40 | NUR ---
MS RN OPENING NOTES RECEIVED PATIENT IN BED, AWAKE ALERT/ORIENTED X4, ON O2 VIA NC AT 2LPM, TOLERATING WELL. BREATHING EVEN AND UNLABORED. NO SOB OR ANY RESPIRATORY DISTRESS NOTED AT THE TIME. WITH IV ACCESS ON FRAN #20G MIDLINE NO FLUIDS RUNNING AT THIS TIME, WITH R AV FISTULA. NOTED PATIENT GRIMACING FOR PAIN ON R SHOULDER, COMFORT MEASURES IN PLACE. CALL LIGHT WITHIN REACH, BED IN LOWEST AND LOCKED POSITION WITH SIDE RAILS UP. WILL CONTINUE TO MONITOR THROUGHOUT THE SHIFT.
[2022-04-03 21:00] VITALS: BP 150/89
[2022-04-03] MEDS: SODIUM POLYSTYRENE SULFONATE 15 G/60 ML BOTTLE PO SCH (21:00)
[2022-04-03] MEDS: LORAZEPAM 1 MG TABLET PO SCH (21:01)
[2022-04-04] MEDS: diphenhydrAMINE HCL 50 MG/ML VIAL IV PRN ×2 (00:40→06:54)
--- NOTE | 2022-04-04 01:40 | NUR ---
RN NOTE PATIENT COMPLAINING OF PAIN ON THE R SHOULDER, 9/10 IN PAIN SCALE, PRN MEDS GIVEN ORDERED, WILL CONT TO MONITOR.
[2022-04-04] MEDS: HYDROMORPHONE 1 MG/1 ML DISP.SYRIN IV PRN ×2 (01:41→05:51)
[2022-04-04] MEDS: LIDOCAINE 5% (PATCH) 1 EA PATCH TP SCH (04:20)
--- NOTE | 2022-04-04 06:56 | NUR ---
MS RN CLOSING NOTES PATIENT IN BED, AWAKE ALERT/ORIENTED X4, ON O2 VIA NC AT 2LPM, TOLERATING WELL. BREATHING EVEN AND UNLABORED. NO SOB OR ANY RESPIRATORY DISTRESS NOTED AT THE TIME. WITH IV ACCESS ON FRAN #20G MIDLINE NO FLUIDS RUNNING AT THIS TIME, WITH R AV FISTULA. ALL SAFETY MEASURES IN PLACE. PATIENT STILL ON CHRONIC PAIN, ALL DUE MEDS GIVEN, KEPT DRY AND CLEAN, CALL LIGHT WITHIN REACH, BED IN LOWEST AND LOCKED POSITION WITH SIDE RAILS UP. WILL ENDORSE TO AM SHIFT NURSE.
--- NOTE | 2022-04-04 07:20 | NUR ---
MS RN OPENING NOTES RECEIVED PATIENT IN BED, AWAKE ALERT/ORIENTED X4, ON O2 VIA NC AT 2LPM, TOLERATING WELL. BREATHING EVEN AND UNLABORED. NO SOB OR ANY RESPIRATORY DISTRESS NOTED AT THE TIME. FRAN #20G MIDLINE INTACT AND PATENT. R AV FISTULA INTACT. SAFETY PRECAUTIONS IN PLACE. CALL LIGHT WITHIN REACH, BED IN LOWEST AND LOCKED POSITION WITH SIDE RAILS UP. WILL CONTINUE TO MONITOR.
[2022-04-04 08:00] VITALS: BP 119/47
[2022-04-04] MEDS: CALCIUM CARBONATE 500 MG TAB.CHEW PO SCH (08:40)
[2022-04-04] MEDS: PANTOPRAZOLE 40 MG TABLET.DR PO SCH (08:41)
[2022-04-04] MEDS: CHOLECALCIFEROL 1,000 UNIT TABLET (VIT D3) PO SCH (08:41)
[2022-04-04] MEDS: VIT B CMPLX 3/FA/VIT C/BIOTIN 1 TAB TABLET PO SCH (08:41)
[2022-04-04] MEDS: DOCUSATE SODIUM 100 MG CAPSULE PO SCH (08:41)
[2022-04-04] MEDS: SEVELAMER CARBONATE 800 MG TABLET PO SCH (08:41)
[2022-04-04] MEDS: CALCITRIOL 0.25 MCG CAPSULE PO SCH (08:42)
[2022-04-04] MEDS: FAMOTIDINE (20 MG) 20 MG TABLET PO SCH (08:42)
[2022-04-04] MEDS: AMIODARONE HCL 200 MG TABLET PO SCH (08:42)
[2022-04-04] MEDS: APIXABAN 2.5 MG TABLET PO SCH (08:44)
[2022-04-04] MEDS: EFAVIRENZ 600 MG TABLET PO SCH (08:55)
[2022-04-04] MEDS: LAMIVUDINE/ZIDOVUDINE 150-300 1 TAB TABLET PO SCH (08:55)
[2022-04-04 09:00] VITALS: BP 119/47
--- NOTE | 2022-04-04 11:30 | NUR ---
[facility] THREAD WINDER NOTES PATIENT MEDICALLY STABLE FOR DISCHARGE. VSS. DISCHARGE INSTRUCTIONS GIVEN TO PATIENT. PATIENT VERBALIZED UNDERSTANDING OF INSTRUCTIONS. EXIT CARE PACKET PROVIDED. IV ACCESS REMOVED, NO BLEEDING NOTED AT THE SITE. ID BAND REMOVED. BELONGINGS ACCOUNTED FOR AND DOCUMENTED. PATIENT LEFT HOSPITAL ACCOMPANIED BY 2 EMT TRANSPORTED VIA [facility].
== END 2022-04-04 17:10 | disposition home or self-care (01) | DRG 177 ==
LOC: ER 17:40 → TELE-TD 03-30 01:47 → TELE1 03-30 17:49 → MEDSG1 04-02 09:41
PROVIDERS: ADMIT Nurse Practitioner Acute Care
PROC: 5A1D70Z Performance of Urinary Filtration, Intermittent, Less than 6 Hours Per Day (ICD-10-PCS; principal; 2022-03-30)
DX: J15.6 Pneumonia due to other Gram-negative bacteria (principal); N18.6 End stage renal disease; I13.2 Hypertensive heart and chronic kidney disease with heart failure and with stage 5 chronic kidney disease, or end stage renal disease; T86.12 Kidney transplant failure; I48.92 Unspecified atrial flutter; J81.1 Chronic pulmonary edema; E87.5 Hyperkalemia; Z99.2 Dependence on renal dialysis; I25.10 Atherosclerotic heart disease of native coronary artery without angina pectoris; F32.A Depression, unspecified; Z21 Asymptomatic human immunodeficiency virus [HIV] infection status; Z77.090 Contact with and (suspected) exposure to asbestos; Z79.899 Other long term (current) drug therapy; Z88.5 Allergy status to narcotic agent; Z91.012 Allergy to eggs; Z79.01 Long term (current) use of anticoagulants; I50.9 Heart failure, unspecified; G89.29 Other chronic pain; M89.8X9 Other specified disorders of bone, unspecified site; D63.8 Anemia in other chronic diseases classified elsewhere; Y92.009 Unspecified place in unspecified non-institutional (private) residence as the place of occurrence of the external cause; Y83.0 Surgical operation with transplant of whole organ as the cause of abnormal reaction of the patient, or of later complication, without mention of misadventure at the time of the procedure; Z91.15 Patient's noncompliance with renal dialysis; Z76.5 Malingerer [conscious simulation]; F17.210 Nicotine dependence, cigarettes, uncomplicated; E88.09 Other disorders of plasma-protein metabolism, not elsewhere classified; M25.511 Pain in right shoulder; Z87.19 Personal history of other diseases of the digestive system; K29.70 Gastritis, unspecified, without bleeding; M89.9 Disorder of bone, unspecified
CPT/HCPCS: 36415; 71045-TC; 73030-TC; 80048-TC; 80053-TC; 80061-TC; 83735-TC; 84100-TC; 85025-TC; 86706; 87081-TC; 87340; 90935-TC; 94799-TC; A4216; C9803; G0378; J0610; J1170; J1200; J1815; J2270; J3490; J7030; P9047; Q0163